=== PATIENT | male | born 1950 | race Caucasian/White ===

== ENCOUNTER 2022-09-11 07:33 | Emergency (ER) | payer MEDICARE, OTHER, SELFPAY ==
--- NOTE | 2022-09-11 | ECG_ITS ---
APPROVED REPORT Exam: Resting ECG HR:78 bpm ECG Measurements Heart Rate 78 AXES [place] 133 P 64 QRSd 101 QRS 57 QT 363 T 0 QTc 396 Conclusion SINUS RHYTHM WITH SINUS ARRHYTHMIA NONSPECIFIC ST & T-WAVE ABNORMALITY BORDERLINE ECG UNCONFIRMED REPORT Electronically signed by : Jeb Melton MD 09/11/2022 17:35:09
[2022-09-11 07:34] VITALS: BP 117/74; PULSE 83; RESP 20; TEMP 36.7; O2SAT 93; BMI 32.3
--- NOTE | 2022-09-11 07:46 | XR_ITS ---
FINAL REPORT TECHNIQUE: Chest PA & Lateral CLINICAL HISTORY: nonspecific cough COMPARISON: none FINDINGS: 2 views of the chest were performed. The heart size is normal. The mediastinum is within normal limits. There are mild chronic changes in the bilateral lungs. There are no pleural effusions. There is no pneumothorax. The bony thorax appears intact. IMPRESSION: No acute cardiopulmonary process. Reviewed, Interpreted and Dictated by Bonifacio Williamson MD Transcribed by Trudy Santana Authenticated and [facility]
[2022-09-11 07:58] LABS: Coronavirus 19, PCR Not Detected (NotDetected); Influenza A, PCR Not Detected (NotDetected); Influenza B, PCR Not Detected (NotDetected)
--- NOTE | 2022-09-11 08:01 | PC.NURSE ---
KEITH CORRALES AT BEDSIDE.
--- NOTE | 2022-09-11 08:04 | HMH.EDGENADL ---
Discharge Plan Disposition Patient Disposition: Home, Self-Care Condition: Good Prescriptions Prescriptions: New prednisone 20 mg tablet 60 mg PO DAILY Qty: 15 0RF Referrals Follow up/Referrals: Skyler Hu MD [Primary Care Provider] - See instructions Activity Restrictions/Add. Instructions Additional Instructions/Restrictions: Please return to the emergency department immediately if you feel worse in any way. Continue taking all medications as prescribed. Follow-up with your primary care doctor in about 3 to 4 days if you do not feel any improvement. Clinical Impressions Clinical Impression: Bronchitis Instructions Patient Instructions: DI for Acute Bronchitis Discharge ED Provider: Paula Cheng Adult HPI General Chief complaint: Upper Respiratory Infection Stated complaint: Congestion,Cough,fever Time Seen by Provider: 09/11/22 08:04 Mode of Arrival: Ambulatory Source of Information: Patient Limitations: No Limitations Description of Symptoms (Recalled from ER Triage Doc. by RN): pt reports productive cough and congestion x1 week, also reports fever, chills, and body aches occasionally, denies chest pain, reports sob occasionally as well History of Present Illness HPI narrative: The patient presents to the emergency department complaining of a 1 week history of productive cough. He is a 1 pack-a-day smoker. He is not on home oxygen. He states that his who is a nurse has the same symptoms. He does complain of some body aches and chills but denies any objective fevers. He states that his oxygen saturations are in the low 90s at baseline. He also has a history of hypertension for which he takes medications. Related Data Previous Rx's Medication Instructions Recorded prednisone 20 mg tablet 60 mg PO DAILY #15 tabs 09/11/22 Allergies Allergy/AdvReac Type Severity Reaction Status Date / Time ciprofloxacin [From Cipro] Allergy Verified 09/11/22 07:45 naproxen [From Aleve] Allergy Verified 09/11/22 07:45 [facility] Disclaimer: The information contained in this section may have been updated after the patient was seen, as this information can be updated by other users. Medical History (Updated 09/11/22 @ 08:17 by Paula Cheng MD) Hypertension Social History Smoking Status: Current every day smoker alcohol intake: former current occupational status: previously employed Travel in the last 8 weeks: None ROS Obtained: Yes All systems reviewed & no additional complaints except as documented Physical Exam General General appearance: alert and in no apparent distress Head Head exam: atraumatic Eye Eye exam: Present normal appearance ENT ENT exam: Present normal exam Neck Neck exam: Present normal inspection and full ROM; Absent tenderness or meningismus Chest Chest inspection: Present normal inspection and symmetric chest wall rise; Absent tenderness Respiratory Respiratory exam: Absent normal lung sounds bilaterally (Mildly decreased breath sounds diffusely bilaterally), respiratory distress or accessory muscle use Cardiovascular Cardiovascular exam: Present regular rate, normal rhythm and normal heart sounds Abdominal Exam Abdominal exam: Present soft and normal bowel sounds; Absent distention, tenderness, heel tap sign, Castellanos's sign, Rovsing's sign, tenderness at McBurney's Point or mass Extremities Exam Extremities exam: Present normal inspection, full ROM and edema (+1 pitting bilaterally) Back Exam Back exam: Present normal inspection; Absent CVA tenderness (R) or CVA tenderness (L) Neurological Exam Neurological exam: Present alert and oriented X3 Psychiatric Psychiatric exam: Present normal affect and normal mood Skin Skin exam: Present warm, dry, intact and normal color Medical Decision Making Aly Inquiry Pt receiving controlled substance: No Vital Signs: 09/11/22 07:34 09/11/22 08:40 Temperature 98.0 F Temperature Sourc
--- NOTE | 2022-09-11 08:06 | PC.NURSE ---
PT TRANSPORTED TO RADIOLOGY VIA WHEELCHAIR.
--- NOTE | 2022-09-11 08:12 | PC.NURSE ---
pt back to room from [facility]
[2022-09-11 08:40] VITALS: BP 129/81; PULSE 86; O2SAT 92
--- NOTE | 2022-09-11 08:40 | PC.NURSE ---
UPDATED PT ON CARE. CALL LIGHT WITHIN REACH. BED IN LOWEST POSITION. NO QUESTIONS OR CONCERNS VOICED AT THIS TIME.
--- NOTE | 2022-09-11 09:00 | PC.NURSE ---
KEITH CORRALES AT BEDSIDE UPDATING PT.
[2022-09-11 09:09] VITALS: BP 115/68; PULSE 102; RESP 18; TEMP 36.8; O2SAT 93
== END 2022-09-11 09:09 | disposition home or self-care (01) ==
PROVIDERS: Emergency Medicine; Emergency Provider Emergency Medicine; PCP Family Medicine
DX: J40 Bronchitis, not specified as acute or chronic (principal); R50.9 Fever, unspecified
CPT/HCPCS: 71046; 93005; 99283; 99284; C9803; U0003; U0005

== ENCOUNTER 2023-03-21 13:26 | Emergency (ER) | payer MEDICARE, OTHER, SELFPAY ==
[2023-03-21 13:34] VITALS: BP 141/86; PULSE 72; RESP 16; TEMP 36.8; O2SAT 94; BMI 32.3
--- NOTE | 2023-03-21 13:53 | HMH.EDGENADL ---
Discharge Plan Disposition Patient Disposition: Home, Self-Care Prescriptions Prescriptions: No Action prednisone 20 mg tablet 60 mg PO DAILY Qty: 15 0RF Referrals Follow up/Referrals: Shun Baker MD [Primary Care Provider] - See instructions Activity Restrictions/Add. Instructions Additional Instructions/Restrictions: Keep Neosporin on your wound once daily for the next week have your sutures removed in 7 to 10 days and return with any spreading redness or pus coming from the wound. Clinical Impressions Clinical Impression: Hand laceration Instructions Patient Instructions: DI for Laceration Repair Discharge ED Provider: Alen Martinez General Adult HPI General Chief complaint: Wound/Laceration Stated complaint: AO 03/21 CUT RIGHT HAND Time Seen by Provider: 03/21/23 13:34 Mode of Arrival: Ambulatory Source of Information: Patient Limitations: No Limitations Description of Symptoms (Recalled from ER Triage Doc. by RN): 72 yo M presents to ED with laceration to palm of right hand. pt was cutting a piece of weather strip on his camper, the knife is his hand slipped and cut his palm. pt states that he is up to date on tetanus shot. History of Present Illness HPI narrative: 72-year-old male here with a laceration to the right hand. States he was working with a knife on his RV and accidentally cut his palmar aspect of the base of his thumb. Its been actively oozing blood he has not had any loss of sensation or movement. He is up-to-date on his tetanus he claims. No injuries elsewhere. States the blade was very clean and needed. Related Data Previous Rx's Medication Instructions Recorded prednisone 20 mg tablet 60 mg PO DAILY #15 tabs 09/11/22 Allergies Allergy/AdvReac Type Severity Reaction Status Date / Time ciprofloxacin [From Cipro] Allergy Verified 03/21/23 13:39 naproxen [From Aleve] Allergy Verified 03/21/23 13:39 [facility] Disclaimer: The information contained in this section may have been updated after the patient was seen, as this information can be updated by other users. Medical History (Updated 03/21/23 @ 13:52 by Alen Martinez MD) Hypertension Social History (Updated 09/11/22 @ 09:05 by Paula Cheng MD) Smoking Status: Current every day smoker alcohol intake: former current occupational status: previously employed Travel in the last 8 weeks: None ROS Obtained: Yes All systems reviewed & no additional complaints except as documented Physical Exam General General appearance: alert Respiratory Respiratory exam: Present normal lung sounds bilaterally Cardiovascular Cardiovascular exam: Present regular rate; Absent tachycardia Expanded Upper Extremity Exam Right: Hand L/R front image: 1. laceration Neurological Exam Neurological exam: Present alert and oriented X3 Medical Decision Making Aly Inquiry Pt receiving controlled substance: No Vital Signs: 03/21/23 13:34 Temperature 98.2 F Temperature Source Oral Pulse Rate [Left Radial] 72 Respiratory Rate 16 Blood Pressure [Right Arm] 141/86 H Blood Pressure Mean [Right Arm] 104 02 Sat by Pulse Oximetry 94 L Medical Decision Narrative: 72-year-old male here with a 4 cm laceration over the palmar aspect of the thenar eminence and the base of the thumb. Wound edges were not reapproximated and were actively bleeding I discussed with him different wound management options but sutures were best. Wound was extensively irrigated after being anesthetized and was close successfully. Return precautions and wound management was discussed. No indication for any prophylactic antibiotics. Patient was up-to-date with tetanus and we did not update this further. Procedures Laceration Laceration 1: Site: thumb and hand Side (If applicable): right Size (cm): 4 Description: linear Depth: simple, single layer Local Anesthetic: lidocaine 1%
[2023-03-21 14:01] VITALS: BP 123/76; PULSE 71; RESP 16; TEMP 36.7
== END 2023-03-21 14:02 | disposition home or self-care (01) ==
PROVIDERS: Emergency Provider Student in an Organized Health Care Education/Training Program; PCP Internal Medicine
DX: S61.411A Laceration without foreign body of right hand, initial encounter (principal); I10 Essential (primary) hypertension; F17.210 Nicotine dependence, cigarettes, uncomplicated; W26.0XXA Contact with knife, initial encounter
CPT/HCPCS: 12002; 99282

== ENCOUNTER 2023-07-02 16:27 | Outpatient (CLI) | payer MEDICARE, OTHER, SELFPAY ==
[2023-07-02 17:04] LABS: Basophils # 0.1 K/mm3 (0-0.2); Basophils % 0.8 % (0.1-2.0); Eosinophils # 0.6 K/mm3 (0.0-0.4); Eosinophils % 6.2 % (0.1-12.0); Hematocrit 47.6 % (42.0-52.0); Hemoglobin 16.1 g/dL (14.1-18.0); Lymphocytes # 2.1 K/mm3 (0.7-4.5); Lymphocytes % 23.9 % (10-50); Mean Corpuscular HGB Conc 33.8 g/dL (31.8-35.4); Mean Corpuscular Hemoglobin 30.9 pg (27.0-31.2); Mean Corpuscular Volume 91.6 fl (80-94); Mean Platelet Volume 8.1 fl (7.4-10.4); Monocytes # 0.7 K/mm3 (0.1-1.0); Monocytes % 7.5 % (1.7-9.3); Neutrophils # 5.5 K/mm3 (1.8-7.8); Neutrophils % 61.6 % (37.0-80.0); Platelet Count 310 K/mm3 (142-424); Red Cell Distribution Width 13.1 % (11.5-17.5); White Blood Count 8.9 K/mm3 (4.8-10.8)
[2023-07-02 17:23] LABS: Chloride 103 mmol/L (98-107); Sodium 139 mmol/L (136-145)
[2023-07-02 17:24] LABS: Potassium 4.3 mmoL/L (3.5-5.1)
[2023-07-02 17:26] LABS: Alanine Aminotransferase 66 U/L (12-78); Albumin Level 3.9 g/dl (3.5-5.0); Albumin/Globulin Ratio 1.4 (1.1-1.8); Alkaline Phosphatase 76 U/L (38-126); Anion Gap 12.3 mEq/L (5-15); Aspartate Amino Transferase 47 U/L (17-59); Bilirubin,Total 0.4 mg/dl (0.2-1.3); Blood Urea Nitrogen 23 mg/dl (9-20); Carbon Dioxide 28 mmol/L (22.0-30.0); Cholesterol 165 mg/dl (140-200); Estimated Glomerular Filt Rate 60 ml/min (>60); GFR (African American) 72 ML/MIN (>60); Globulin 2.7 g/dL (1.3-3.2); Total Protein,Serum 6.6 g/dl (6.3-8.2); Triglycerides 310 mg/dl (30-150); VLDL Cholesterol 62 mg/dL (0-40)
[2023-07-02 17:27] LABS: Calcium 8.8 mg/dl (8.4-10.2); Chol/HDL Ratio 6.1 (1-3.5); Glucose 134 mg/dl (74-100); HDL Cholesterol 27 mg/dl (40-60)
[2023-07-02 17:47] LABS: Direct LDL Cholesterol 105.63 mg/dL (100-129)
[2023-07-02 18:06] LABS: Prostate Specific Ag Screen 0.6 ng/ml (0.0-4.0)
[2023-07-04 16:08] LABS: Hemoglobin A1C 6.5 % (4.0-6.0)
== END 2023-07-02 23:59 ==
LOC: LAB.DROPOF 16:29
PROVIDERS: PCP Internal Medicine; Visit Provider Internal Medicine
DX: I10 Essential (primary) hypertension (principal); I73.9 Peripheral vascular disease, unspecified; E78.5 Hyperlipidemia, unspecified; Z98.890 Other specified postprocedural states; Z12.5 Encounter for screening for malignant neoplasm of prostate; R73.09 Other abnormal glucose
CPT/HCPCS: 80053; 80061; 83036; 85025; G0103

== ENCOUNTER 2024-04-15 14:04 | Outpatient (CLI) | payer MEDICARE, OTHER, SELFPAY ==
[2024-04-15 14:02] LABS: Albumin Level 4.2 g/dl (3.5-5.0); Chloride 104 mmol/L (98-107); Potassium 4.6 mmoL/L (3.5-5.1); Sodium 139 mmol/L (136-145)
[2024-04-15 14:05] LABS: Alanine Aminotransferase 23 U/L (12-78); Albumin/Globulin Ratio 1.7 (1.1-1.8); Alkaline Phosphatase 66 U/L (38-126); Anion Gap 11.6 mEq/L (5-15); Aspartate Amino Transferase 20 U/L (17-59); Bilirubin,Total 0.6 mg/dl (0.2-1.3); Blood Urea Nitrogen 22 mg/dl (9-20); Carbon Dioxide 28 mmol/L (22.0-30.0); Cholesterol 168 mg/dl (140-200); Estimated Glomerular Filt Rate 73 ml/min (>60); GFR (African American) 89 ML/MIN (>60); Globulin 2.5 g/dL (1.3-3.2); Total Protein,Serum 6.7 g/dl (6.3-8.2); Triglycerides 143 mg/dl (30-150); VLDL Cholesterol 29 mg/dL (0-40)
[2024-04-15 14:06] LABS: Calcium 8.9 mg/dl (8.4-10.2); Chol/HDL Ratio 6.2 (1-3.5); Glucose 102 mg/dl (74-100); HDL Cholesterol 27 mg/dl (40-60)
[2024-04-15 14:17] LABS: Direct LDL Cholesterol 118.35 mg/dL (100-129)
[2024-04-15 14:58] LABS: Hemoglobin A1C 5.9 % (4.0-6.0)
== END 2024-04-15 23:59 | disposition home or self-care (01) ==
LOC: LAB.DROPOF 14:04
PROVIDERS: PCP Internal Medicine; Visit Provider Internal Medicine
DX: E78.5 Hyperlipidemia, unspecified (principal); I10 Essential (primary) hypertension; R73.02 Impaired glucose tolerance (oral)
CPT/HCPCS: 80053; 80061; 83036

== ENCOUNTER 2024-10-21 19:51 | Inpatient (IN) | payer MEDICARE, OTHER, SELFPAY ==
--- NOTE | 2024-10-21 20:04 | CT_ITS ---
PROCEDURE INFORMATION: Exam: CT Lumbar Spine Without Contrast Exam date and time: 10/21/2024 8:59 PM Age: 74 years old Clinical indication: Other: Sepsis unknown origin, fall, AMS TECHNIQUE: Imaging protocol: Computed tomography of the lumbar spine without contrast. Radiation optimization: All CT scans at this facility use at least one of these dose optimization techniques: automated exposure control; mA and/or kV adjustment per patient size (includes targeted exams where dose is matched to clinical indication); or iterative reconstruction. COMPARISON: CT THORACIC SPINE WO CON 10/21/2024 8:57 PM FINDINGS: Bones/joints: Moderate loss of intervertebral disc space with degenerative changes involving L5-S1. Mild loss of intervertebral disc space with degenerative changes involving L2 through L5. The vertebral bodies are maintained in height and alignment. No evidence of acute osseous abnormality. Soft tissues: Unremarkable. IMPRESSION: No evidence of acute osseous abnormality.
--- NOTE | 2024-10-21 20:04 | CT_ITS ---
PROCEDURE INFORMATION: Exam: CTA Chest With Contrast Exam date and time: 10/21/2024 9:03 PM Age: 74 years old Clinical indication: Other: Sepsis unknown origin, fall, AMS TECHNIQUE: Imaging protocol: Computed tomographic angiography of the chest with contrast. Exam focused on the arteries. 3D rendering (Not supervised by radiologist): MIP and/or 3D reconstructed images were created by the technologist. Radiation optimization: All CT scans at this facility use at least one of these dose optimization techniques: automated exposure control; mA and/or kV adjustment per patient size (includes targeted exams where dose is matched to clinical indication); or iterative reconstruction. Contrast material: ISO 370; Contrast volume: 70 ml; Contrast route: INTRAVENOUS (IV); COMPARISON: CR XR CHEST 2V 09/11/2022 7:58 AM FINDINGS: Pulmonary arteries: Normal. No pulmonary emboli. Aorta: There is moderate calcific atherosclerotic disease of the thoracic aorta without aneurysmal dilatation. Lungs: Left upper lobe airspace opacities favoring pneumonia in the setting of infection. Left lower lobe 3.0 cm spiculated nodule, axial image 62 of series 5. Pleural spaces: Unremarkable. No pneumothorax. No pleural effusion. Heart: Unremarkable. No cardiomegaly. No pericardial effusion. Coronary arteries: Moderate three-vessel calcific atherosclerotic disease of the coronary arteries. Lymph nodes: Prominent mediastinal and hilar lymph nodes are likely reactive. Liver: There is diffuse hypoattenuation of the liver compatible with moderate hepatic steatosis. Gallbladder and biliary ducts: There are surgical clips within the gallbladder fossa. Bones/joints: Unremarkable. No acute fracture. Soft tissues: Unremarkable. IMPRESSION: 1. Left upper lobe airspace opacities favoring pneumonia in the setting of infection. Recommend continued follow-up imaging to document resolution after treatment. 2. Left lower lobe 3.0 cm spiculated nodule, axial image 62 of series 5. Consider non-emergent PET/CT or tissue sampling.(Reference: Antonietta) REFERENCES: Antonietta Arce, et al. Guidelines for Management of Incidental Pulmonary Nodules Detected on CT Images: From the Fleischner Society 2017. Radiology. 2017;284(1):228-243.
--- NOTE | 2024-10-21 20:04 | CT_ITS ---
PROCEDURE INFORMATION: Exam: CT Head Without Contrast Exam date and time: 10/21/2024 8:53 PM Age: 74 years old Clinical indication: Other: Sepsis unknown origin, fall, AMS TECHNIQUE: Imaging protocol: Computed tomography of the head without contrast. Radiation optimization: All CT scans at this facility use at least one of these dose optimization techniques: automated exposure control; mA and/or kV adjustment per patient size (includes targeted exams where dose is matched to clinical indication); or iterative reconstruction. COMPARISON: No relevant prior studies available. FINDINGS: Brain: Mild-moderate generalized cerebral/cerebellar atrophy. Mild bilateral white matter hypodensities which are nonspecific but most commonly associated with chronic microvascular ischemia in this age group. The IACs are grossly normal. No extra-axial fluid collections. No evidence of acute intracranial hemorrhage. Cerebral/cerebellar cramer-white matter differentiation is well maintained. No intracranial mass lesions. No midline shift or herniation. Cerebral ventricles: Moderate compensatory ventriculomegaly secondary to central atrophy. Pituitary gland and sella: The sella is grossly normal. Paranasal sinuses: Opacified right frontal sinus and mild mucosal thickening in the right ethmoid air cells and left sphenoid sinus consistent with changes of chronic sinusitis. No fluid levels. Mastoid air cells: Visualized mastoid air cells are clear. Orbital cavities: Prior bilateral ocular cataract surgery. Bones: No acute osseous findings. Moderate right and mild-moderate left TMJ osteoarthritic changes. Soft tissues: No acute soft tissue findings. Vasculature: Mild-moderate calcific atherosclerosis. No asymmetric vascular hyperdensities suggestive of thrombosis are identified. IMPRESSION: 1. No acute intracranial process. No intracranial hemorrhage or mass effect. 2. Chronic sinusitis.
--- NOTE | 2024-10-21 20:04 | CT_ITS ---
PROCEDURE INFORMATION: Exam: CT Thoracic Spine Without Contrast Exam date and time: 10/21/2024 8:57 PM Age: 74 years old Clinical indication: Other: Sepsis unknown origin, fall, AMS TECHNIQUE: Imaging protocol: Computed tomography of the thoracic spine without contrast. Radiation optimization: All CT scans at this facility use at least one of these dose optimization techniques: automated exposure control; mA and/or kV adjustment per patient size (includes targeted exams where dose is matched to clinical indication); or iterative reconstruction. COMPARISON: CT THORACIC SPINE WO CON 10/21/2024 8:57 PM FINDINGS: Bones/joints: Click bladder disc C6-C7. Coarsening of the trabecular of T12 suggesting intraosseous hemangioma. The vertebral bodies are maintained in height and alignment. No evidence of acute osseous abnormality. Soft tissues: Unremarkable. IMPRESSION: No evidence of acute osseous abnormality.
--- NOTE | 2024-10-21 20:04 | CT_ITS ---
PROCEDURE INFORMATION: Exam: CT Cervical Spine Without Contrast Exam date and time: 10/21/2024 8:55 PM Age: 74 years old Clinical indication: Other: Sepsis unknown origin, fall, AMS TECHNIQUE: Imaging protocol: Computed tomography of the cervical spine without contrast. Radiation optimization: All CT scans at this facility use at least one of these dose optimization techniques: automated exposure control; mA and/or kV adjustment per patient size (includes targeted exams where dose is matched to clinical indication); or iterative reconstruction. COMPARISON: CT HEAD/BRAIN WO CON 10/21/2024 8:53 PM FINDINGS: Bones: Craniocervical alignment is normal. The occipital condyles are intact. The odontoid is intact. Moderate osteoarthritic sclerosis and spurring at the atlantodens interval. No jumped or perched facets. Moderate multilevel bilateral osteoarthritic facet hypertrophy. No fractures. 6 mm chronic appearing ossification at the tip of the C7 spinous process consistent with chronic degenerative or posttraumatic calcification. Slight 1-2 mm osteoarthritic anterolisthesis C4-C5 and C5-C6. Mild-moderate osteoarthritic disc space narrowing and marginal spurring C3-C4 and C6-C7. No significant canal stenosis. There is right foraminal stenosis which is mild at C2-C3, moderate-severe at C3-C4, mild-moderate at C4-C5. There is left foraminal stenosis which is mild at C3-C4, moderate at C4-C5, mild-moderate at C5-C6 and C6-C7. Lungs: Visualized pulmonary apices are clear. Thyroid: The visualized thyroid gland is unremarkable. Soft tissues: No acute soft tissue abnormalities. IMPRESSION: 1. No evidence of acute fracture or traumatic subluxation. No CT evidence of spinal infection. 2. Osteoarthritic changes with bilateral foraminal stenoses detailed above.
--- NOTE | 2024-10-21 20:04 | CT_ITS ---
PROCEDURE INFORMATION: Exam: CT Abdomen And Pelvis With Contrast Exam date and time: 10/21/2024 9:03 PM Age: 74 years old Clinical indication: Other: Sepsis unknown origin, fall, AMS TECHNIQUE: Imaging protocol: Computed tomography of the abdomen and pelvis with contrast. 3D rendering (Not supervised by radiologist): MIP and/or 3D reconstructed images were created by the technologist. Radiation optimization: All CT scans at this facility use at least one of these dose optimization techniques: automated exposure control; mA and/or kV adjustment per patient size (includes targeted exams where dose is matched to clinical indication); or iterative reconstruction. Contrast material: ISOVUE; Contrast volume: 70 ml; Contrast route: IV; COMPARISON: CT LUMBAR SPINE WO CON 10/21/2024 8:59 PM FINDINGS: Liver: There is diffuse hypoattenuation of the liver compatible with moderate hepatic steatosis. Gallbladder and biliary ducts: There are surgical clips within the gallbladder fossa. Pancreas: Normal. No ductal dilation. Spleen: Normal. No splenomegaly. Adrenal glands: Normal. No mass. Kidneys and ureters: Normal. No hydronephrosis. Stomach and bowel: Unremarkable. No obstruction. No mucosal thickening. Appendix: The appendix is not definitely identified, but there are no primary or secondary CT findings to suggest a diagnosis of acute appendicitis. Intraperitoneal space: Unremarkable. No free air. No significant fluid collection. Vasculature: Moderate mixed calcific and noncalcified atherosclerotic disease of the abdominal aorta with endovascular repair of an aortic aneurysm with left stent having moderate to severe stenosis distally. Lymph nodes: Unremarkable. No enlarged lymph nodes. Urinary bladder: Unremarkable as visualized. Reproductive: Unremarkable as visualized. Bones/joints: Exostosis at the left anterior superior iliac spine. Moderate loss of intervertebral disc space with degenerative changes involving L4 through S1. Soft tissues: Normal. IMPRESSION: Moderate mixed calcific and noncalcified atherosclerotic disease of the abdominal aorta with endovascular repair of an aortic aneurysm with left stent having moderate to severe stenosis distally. Consider nonurgent vascular surgery consultation.
[2024-10-21 20:14] LABS: Basophils # 0.1 K/mm3 (0-0.2); Basophils % 0.5 % (0.1-2.0); Hematocrit 42.8 % (42.0-52.0); Hemoglobin 14.7 g/dL (14.1-18.0); Immature Granulocytes # 0.07 10^3uL; Immature Granulocytes % 0.5 %; Lymphocytes # 1.4 K/mm3 (0.7-4.5); Lymphocytes % 10.2 % (10-50); Mean Corpuscular HGB Conc 34.3 g/dL (31.8-35.4); Mean Corpuscular Volume 87.3 fl (80-94); Mean Platelet Volume 9.6 fl (7.4-10.4); Monocytes # 1.4 K/mm3 (0.1-1.0); Monocytes % 10.5 % (1.7-9.3); Neutrophils # 10.4 K/mm3 (1.8-7.8); Neutrophils % 78.3 % (37.0-80.0); Nucleated Red Blood Cells # 0 10^3/uL; Nucleated Red Blood Cells % 0 %; Platelet Count 277 K/mm3 (142-424); Red Cell Distribution Width 12.6 % (11.5-17.5); Red Cell Distribution Width-SD 40.1 fL; White Blood Count 13.3 K/mm3 (4.8-10.8)
[2024-10-21] MEDS: LACTATED RINGERS 1000ML 1,000 ML 999 ML IV (20:20)
[2024-10-21] MEDS: ACETAMINOPHEN 1,000MG/100ML VIAL 1000 MG IV (20:20)
[2024-10-21 20:21] VITALS: BP 145/74; PULSE 91; RESP 20; TEMP 39.4; O2SAT 94; BMI 34.7
[2024-10-21 20:22] LABS: VBG Base Excess 0.2 mmol/L (-2.4-2.3); VBG HCO3 24.5 mmol/L (23-30); VBG Oxygen Saturation 81.4 % (50-70); VBG PCO2 37.6 mmol/L (35-51); VBG PH 7.43 mmol/L (7.31-7.41); VBG PO2 45.1 mmol/L (28-40); VBG Total CO2 25.6 mmol/L (23-27)
[2024-10-21 20:26] LABS: Lactate Venous 3.8 mmol/L (0.4-2.0)
[2024-10-21 20:36] LABS: Coronavirus 19, PCR Not Detected (NotDetected); Influenza A, PCR Not Detected (NotDetected); Influenza B, PCR Not Detected (NotDetected)
[2024-10-21 20:38] LABS: Albumin Level 4.4 g/dl (3.5-5.0); Chloride 92 mmol/L (98-107); Potassium 3.2 mmoL/L (3.5-5.1); Sodium 129 mmol/L (136-145)
[2024-10-21 20:41] LABS: Alanine Aminotransferase 25 U/L (12-78); Albumin/Globulin Ratio 1.4 (1.1-1.8); Alkaline Phosphatase 76 U/L (38-126); Anion Gap 13.2 mEq/L (5-15); Aspartate Amino Transferase 25 U/L (17-59); Blood Urea Nitrogen 23 mg/dl (9-20); Calcium 8.6 mg/dl (8.4-10.2); Carbon Dioxide 27 mmol/L (22.0-30.0); Creatinine Clearance Estimated 69 mL/min (50-200); Estimated Glomerular Filt Rate 54 ml/min (>60); GFR (African American) 65 ML/MIN (>60); Globulin 3.2 g/dL (1.3-3.2); Glucose 143 mg/dl (74-100); Total Protein,Serum 7.6 g/dl (6.3-8.2)
[2024-10-21 20:47] LABS: C-Reactive Protein 159.9 mg/L (0-4)
[2024-10-21 20:51] LABS: NT Pro Brain Natriuretic Pep. 533 pg/mL (0-125)
[2024-10-21 20:54] LABS: Troponin I 0.02 ng/ml (0.00-0.034)
[2024-10-21] MEDS: SODIUM CHLORIDE 0.9% 10ML SYR (RAD ONLY) 10 ML IV (20:54)
[2024-10-21] MEDS: IOPAMIDOL-370 (76%);100ML BOTTLE 70 ML IV (20:54)
[2024-10-21] MEDS: 0.9 % SODIUM CHLORIDE 50 ML VIAL IV (20:54)
[2024-10-21 20:59] LABS: T4 (Thyroxine) 7.3 ug/dl (5.53-11.0)
[2024-10-21 21:12] LABS: Thyroid Stimulating Hormone 1.53 uIU/mL (0.465-4.68)
[2024-10-21 21:38] LABS: Procalcitonin 0.241 ng/mL (0.0-2.0)
[2024-10-21] MEDS: PIPERACILLIN/TAZO 3.375 GM in 0.9 % SODIUM CHLORIDE 50 ML IV (22:23)
--- NOTE | 2024-10-21 22:25 | HMH.EDGENADL ---
Discharge Plan Disposition Patient Disposition: Admitted Condition: Good Clinical Impressions Clinical Impression: Sepsis, Pneumonia, Fall, Lung mass Discharge ED Provider: Lily Urena General Adult HPI General Chief complaint: Fall Stated complaint: fall Time Seen by Provider: 10/21/24 19:59 Mode of Arrival: EMS Source of Information: Patient Description of Symptoms (Recalled from ER Triage Doc. by RN): pt to ED with c/o dizziness, fall, and hitting head. No LOC. No blood thinners. History of Present Illness HPI narrative: This patient is a 74-year-old male with a history of COPD, tobacco use disorder, hypertension, hyperlipidemia presents the emergency department for evaluation of concern for fall. Patient notes that has been sick for a couple of days with fevers, cough, shortness of breath and has not been feeling well overall. He states that today, he felt very lightheaded and fell, hitting his head. He does not think he lost consciousness. He denies any pain as a result of the fall. No other concerns noted at this time. He denies use of blood thinners but does take aspirin Related Data Home Medications ?Medication ?Instructions ?Recorded ?Confirmed aspirin 81 mg tablet,delayed 81 mg PO DAILY 04/15/24 10/21/24 release amlodipine 5 mg tablet 5 mg PO DAILY 10/21/24 10/21/24 sertraline 50 mg tablet 50 mg PO DAILY 10/21/24 10/21/24 triamterene 37.5 37.5 tab PO DAILY 10/21/24 10/21/24 mg-hydrochlorothiazide 25 mg tablet Allergies Allergy/AdvReac Type Severity Reaction Status Date / Time ciprofloxacin (From Cipro) Allergy Verified 04/15/24 08:19 naproxen (From Aleve) Allergy Verified 04/15/24 08:19 [facility] Disclaimer: The information contained in this section may have been updated after the patient was seen, as this information can be updated by other users. Medical History Cataracts, bilateral Spermatocele Neoplasm of right patella Gangrene of gallbladder Abdominal aortic aneurysm Hypertension Surgical History Hx of tonsillectomy S/P AAA (abdominal aortic aneurysm) repair Hx of cholecystectomy Family History (Updated 10/21/24 @ 23:57 by Brittany Bajwa RN) Father Stroke Mother UTI (urinary tract infection) Social History (Updated 10/21/24 @ 23:59 by Brittany Bajwa RN) Smoking Status: Current every day smoker alcohol intake: former current occupational status: previously employed Travel in the last 8 weeks?: None Have you lived/traveled outside US in past 30 days?: No Contact w/someone who lives/traveled outside US past 30 days?: No Exposure to someone with infectious disease in past 14 days?: No Do you have a fever (greater than 100.4 F or 38 C)?: No Have you tested positive for COVID-19?: No Exposed to someone with COVID-19 in past 14 days?: No Do you have a sore throat?: No Do you have a cough?: No Do you have any weakness?: No Do you have any diarrhea?: No Are you experiencing any unusual bleeding?: No Do you have any muscle aches/pain?: No Do you have any abdominal pain?: No Are you experiencing loss of taste or smell?: No Other Medical History Have you received the Pneumonia Vaccine: No ROS Obtained: Yes All systems reviewed & no additional complaints except as documented Physical Exam General General appearance: alert and obese Comment: Ill-appearing Head Head exam: normocephalic and other (Some bruising to the forehead) Eye Eye exam: Present normal appearance, PERRL and EOMI ENT ENT exam: Present normal exam, normal oropharynx, mucous membranes moist and normal external ear exam Neck Neck exam: Present normal inspection, trachea midline and other (C-collar in place); Absent tenderness Chest Chest inspection: Present normal inspection and symmetric chest wall rise; Absent tenderness Respiratory Respiratory exam: Present normal lung sounds bilaterally; Absent respiratory distress, wheezes, stridor or accessory muscle use Cardiovascular Cardiovascular exam: Present normal rhythm and tachycardia Abdominal Exam Abdominal exam: Present soft; Absent distention, tenderness or guarding Extremities Exam Extremities exam: Present normal inspection, full ROM and normal capillary refill; Absent tenderness or edema Back Exam Back exam: Present normal inspection and full ROM; Absent tenderness Neurological Exam Neurological exam: Present alert, oriented X3, CN II-XII intact and normal gait; Absent motor sensory deficit Psychiatric Psychiatric exam: Present normal affect and normal mood Skin Skin exam: Present warm, diaphoresis and other (Very warm, diaphoretic) Medical Decision Making Medical Records Medical records reviewed: Yes I reviewed the patient's medical records. Screening: Per USPSTF and CDC recommendations, given the prevalence of disease in our region, it is our hospital?s policy to screen for HIV and viral Hepatitis for all patients aged 18 and over and those with ongoing risk factors. Aly Inquiry Pt receiving controlled substance: No Vital Signs: 10/21/24 20:21 10/21/24 22:36 10/21/24 22:44 Temperature 103.0 F H 98.4 F Temperature Source Oral Oral Pulse Rate 68 Pulse Rate [Left Radial] 91 H 68 Respiratory Rate 20 19 20 Blood Pressure 123/70 Blood Pressure [Right Arm] 145/74 H Blood Pressure Mean [Right Arm] 97 Blood Pressure Source Automatic Cuff Blood Pressure Source [Right Arm] Automatic Cuff Blood Pressure Position Supine Blood Pressure Position [Right Arm] Sitting 02 Sat by Pulse Oximetry 94 L 92 L Oxygen Delivery Method Room Air Nasal Cannula Nasal Cannula Oxygen Flow Rate (LPM) 1 2 Lab Data Lab results reviewed: Yes I reviewed the patient's lab results. Lab Results 10/21/24 20:00: WBC 13.3 H, RBC 4.90, Hgb 14.7, Hct 42.8, MCV 87.3, MCH 30.0, MCHC 34.3, RDW 12.6, Plt Count 277, MPV 9.6, Neut % (Auto) 78.3, Lymph % (Auto) 10.2, [facility] % (Auto) 10.5 H, Eos % (Auto) 0.0 L, Baso % (Auto) 0.5, Neut # (Auto) 10.4 H, Lymph # (Auto) 1.4, [facility] # (Auto) 1.4 H, Eos # (Auto) 0.0, Baso # (Auto) 0.1, Sodium 129 L, Potassium 3.2 L, Chloride 92 L, Carbon Dioxide 27, Anion Gap 13.2, BUN 23 H, Creatinine 1.30 H, Estimated Creat Clear 69, Estimated GFR 54 L, Est GFR ( Amer) 65, Glucose 143 H, Calcium 8.6, Total Bilirubin 1.0, AST 25, ALT 25, Alkaline Phosphatase 76, Troponin I 0.02, C-Reactive Protein 159.9 H, NT-Pro-B Natriuret Pep 533 H, Total Protein 7.6, Albumin 4.4, Globulin 3.2, Albumin/Globulin Ratio 1.4, Procalcitonin 0.241, TSH 1.53, Thyroxine (T4) 7.3 10/21/24 20:04: VBG pH 7.43 H, VBG pCO2 37.6, VBG pO2 45.1 H, VBG HCO3 24.5, VBG Total CO2 25.6, VBG O2 Saturation 81.4 H, VBG Base Excess 0.2, VBG Lactic Acid 3.8 H 10/21/24 20:22: SARS-CoV-2 (PCR) Not detected, Influenza A Untype (PCR) Not detected, Influenza Type B (PCR) Not detected 10/21/24 20:00 10/21/24 20:00 Orders (Tests/Meds): ED MEDICATIONS Generic Name Dose Route Start Last Admin Trade Name Freq PRN Reason Stop Dose Admin Acetaminophen 650 mg 10/21/24 23:51 Acetaminophen 325mg Tab PO 11/20/24 23:50 Q4HP PRN Fever or Mild Pain (1-3) Piperacillin Sod/Tazobactam 50 mls @ 100 mls/hr 10/22/24 08:00 Sod 3.375 gm/ Sodium Chloride IV 11/01/24 07:59 Q8H MENDEZ Sodium Chloride 1,000 mls @ 50 mls/hr 10/21/24 23:45 10/22/24 00:05 Sod Chlor 0.9% 1000ml Bag IV 11/20/24 23:44 50 mls/hr .Q20H MENDEZ Administration Miscellaneous 1 each 10/21/24 22:15 10/21/24 22:33 Vancomycin Consult Request NOTAPPLIC 11/20/24 22:14 1 each CONSULT PHARMACY MENDEZ Administration Miscellaneous 1 each 10/21/24 23:45 10/22/24 00:05 Vancomycin Consult Request NOTAPPLIC 11/20/24 23:44 1 each CONSULT PHARMACY MENDEZ Administration Ondansetron HCl 4 mg 10/21/24 23:51 Ondansetron 4mg/2ml Vial IV 11/20/24 23:50 Q8HP PRN Nausea Sodium Chloride 3 ml 10/21/24 23:49 10/22/24 00:53 Sodium Chloride 3% 15ml Neb IH 11/20/24 23:48 3 ml ONCE PRN Administration INDUCE SPUTUM COLLECTION Sodium Chloride 10 ml 10/21/24 23:51 Sodium Chloride 0.9% 10ml Flush Syringe IV 11/20/24 23:50 NEEDED PRN Maintain IV Site Discontinued Medications Generic Name Dose Route Start Last Admin Trade Name Freq PRN Reason Stop Dose Admin Acetaminophen 1,000 mg 10/21/24 20:06 10/21/24 20:20 Acetaminophen 1,000mg/100ml Vial IV 10/21/24 20:07 1,000 mg ONCE ONE Administration Lactated Ringer's 1,000 mls @ 999 mls/hr 10/21/24 20:06 10/21/24 20:20 Lactated Ringer's 1000 Ml Bag IV 10/21/24 21:06 999 mls/hr .Q1H1M ONE Administration Lactated Ringer's 1,910 mls @ 955 mls/hr 10/21/24 20:39 10/21/24 22:02 Lactated Ringer's 1000 Ml Bag 30 ml/kg infuse over 2 hr (1910 ml) 10/21/24 22:38 Not Given IV .Q2H ONE Piperacillin Sod/Tazobactam 50 mls @ 100 mls/hr 10/21/24 22:14 10/21/24 22:23 Sod 3.375 gm/ Sodium Chloride IV 10/21/24 22:43 100 mls/hr ONCE ONE Administration Vancomycin/PEG/NADA/Lysine/Water 1.75 gm in 350 mls @ 175 mls/hr 10/21/24 22:30 10/21/24 23:30 Vancomycin 1.75gm/350ml (Peg) Premix IV 10/22/24 00:29 175 mls/hr ONCE ONE Administration Iopamidol 70 ml 10/21/24 20:53 10/21/24 20:54 Iopamidol-370 (76%);100ml Bottle IV 10/21/24 20:54 70 ml ONCE ONE Administration Sodium Chloride 50 ml 10/21/24 20:53 10/21/24 20:54 0.9 % Sodium Chloride 50 Ml Vial IV 10/21/24 20:54 50 ml ONCE ONE Administration Sodium Chloride 10 ml 10/21/24 20:53 10/21/24 20:54 Sodium Chloride 0.9% 10ml Syr (Rad Only) IV 10/21/24 20:54 10 ml ONCE ONE Administration ORDERS Category Date Time Status CT abdomen pelvis w con Stat Cat Scan 10/21/24 20:[address] angio chest PE protocol Stat Cat Scan 10/21/24 20:[address] cervical spine wo con Stat Cat Scan 10/21/24 20:[address] head/brain wo con Stat Cat Scan 10/21/24 20:[address] lumbar spine wo con Stat Cat Scan 10/21/24 20:[address] thoracic spine wo con Stat Cat Scan 10/21/24 20:04 Completed BNP [NT Pro Brain Natriuretic Pep.] Stat Lab 10/21/24 20:00 Completed CRP [C-Reactive Protein] Stat Lab 10/21/24 20:00 Completed Complete Blood Count Auto Diff Stat Lab 10/21/24 20:00 Completed Comprehensive Metabolic Panel Stat Lab 10/21/24 20:00 Completed Procalcitonin Stat Lab 10/21/24 20:00 Completed Rapid PCR Covid and Flu A/B Stat Lab 10/21/24 20:22 Completed T4 (Thyroxine) Stat Lab 10/21/24 20:00 Completed TSH [Thyroid Stimulating Hormone] Stat Lab 10/21/24 20:00 Completed Trop I [Troponin I] Stat Lab 10/21/24 20:00 Completed Troponin I Q3H Lab 10/21/24 23:33 Completed Troponin I Q3H Lab 10/22/24 02:15 Ordered UA [Urinalysis and Microscopic] Stat Lab 10/22/24 00:19 Completed Blood Culture Stat Micro 10/21/24 19:45 Received VBG [Venous Blood Gas] Stat RT 10/21/24 20:04 Completed Medical Decision Narrative: In summary, this patient is a 74-year-old male presenting to the Emergency Department for evaluation of fall. He also notes several days of general illness with shortness of breath and generally feeling unwell. Differential diagnoses considered include but are not limited to pneumonia, sepsis, UTI, head trauma, C-spine fracture, polytrauma. Ruling out the most morbid conditions drove assessment. It should be noted patient's history includes COPD, hypertension, hyperlipidemia, tobacco dependence which may or may not be at goal therapy. This complicates all aspects of care by increasing patient's risk for morbidity. I reviewed patient's past medical records and noted prior PCP evaluations for maintenance of health in the setting of COPD. On exam, the patient is ill-appearing, febrile, tachycardic, tachypneic. He is very diaphoretic. He is requiring 2 L nasal cannula. Broad lab evaluation to evaluate for infectious, metabolic, cardiac derangements in the setting of general illness and shortness of breath he has head hematoma but otherwise no focal traumatic injuries noted on exam, he is neurologically intact. Workup included as well as CT head, CT C/T/L-spine, CTA PE protocol, CT abdomen pelvis with IV contrast. I independently interpreted CT scan prior to the radiologist read and noted pneumonia, no obvious traumatic injury such as intracranial hemorrhage or fracture. Please see their read for final interpretation. Radiology noted concern for possible lung mass, which patient was notified of. Labs were obtained that demonstrated leukocytosis and mildly elevated lactic acid in the setting of fever, tachycardia, tachypnea consistent with sepsis. He was given sepsis bolus of IV fluids based on ideal body weight with improved perfusion on skin reassessment afterward. He also has elevated inflammatory markers. BNP is very mildly elevated, mild AUGUSTINA, mild hyponatremia, mild hypokalemia.. On reassessment, patient had good improvement after administration of interventions above. He is given IV acetaminophen in addition to the sepsis bolus for fever control, and he was given IV vancomycin and Zosyn for broad-spectrum antibiotics. Ultimately given sepsis in the setting of pneumonia, fall without traumatic injury, electrolyte derangements, AUGUSTINA I feel he would benefit from admission for continued monitoring and resuscitation. I had an indirect discussion with the hospitalist who admitted the patient in stable condition. Critical Care Critical Care Time Critical Care Time: Yes Attestation: On 10/21/24, the high probability of a clinically significant, sudden or life threatening deterioration of the following system(s) required my full and direct attention, intervention and personal management. The time I documented below is in addition to time spent performing reported procedures but includes the following listed in this critical care notation. Total Time Total Critical Care Time: 45
[2024-10-21] MEDS: VANCOMYCIN CONSULT REQUEST 1 EACH NOTAPPLIC (22:33)
[2024-10-21 22:36] VITALS: PULSE 68; RESP 19; O2SAT 92
[2024-10-21 22:44] VITALS: BP 123/70; PULSE 68; RESP 20; TEMP 36.9; O2SAT 94
--- NOTE | 2024-10-21 22:44 | PC.NURSE ---
report called to Brittany NELSON
--- NOTE | 2024-10-21 23:16 | PC.NURSE ---
Patient arrived tof eliud via wheelchair from ED at 23:05.
[2024-10-21] MEDS: VANCOMYCIN/WATER FOR INJ (PEG) 1.75 GM/350 ML PIGGYBACK IV (23:30)
--- NOTE | 2024-10-21 23:35 | P.HP_ITS ---
<Statement entered by Mukund Patrick MD - 10/22/24 09:39> Rounded on patient after nurse practitioner. Personally examined and interviewed patient. Agree with exam findings and care plan as documented. History of Present Illness *Admission Date: 10/21/24 *Reason for visit:: Fall *History of present illness: This is a 74-year-old male with a past medical history of COPD, tobacco use, hypertension, hyperlipidemia who presents emergency department today with conc kinjal for fall. is at the bedside and provides collateral and states that he has had several days of feeling generally unwell. She reports chronic cough with tobacco use but states this cough may have been a little bit different. 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 Oxygen saturations have been okay. Patient himself reports feeling very lightheaded and off-balance today. He reports going to the bathroom and falling forward into the bathtub and hitting his head against the wall. He endorses general malaise and fatigue. Cough and runny nose. Emergency department workup notable for sepsis on arrival with fever of 103, leukocytosis with a white blood cell count of 13. Lactic acid of 3.8, sodium of 129, potassium of 3.2, CRP of 159. Chest imaging notable for left upper lobe airspace opacity favoring pneumonia. Left lower lobe 3 cm spiculated nodule with recommendations for follow-up PET or CT tissue sampling. Given his sepsis, he was covered with vancomycin and Zosyn after blood cultures obtained. He is admitted to hospital service at this time [facility] Disclaimer: The information contained in this section may have been updated after the patient was seen, as this information can be updated by other users. Medical History Cataracts, bilateral Spermatocele Neoplasm of right patella Gangrene of gallbladder Abdominal aortic aneurysm Hypertension Surgical History Hx of tonsillectomy S/P AAA (abdominal aortic aneurysm) repair Hx of cholecystectomy Family History (Updated 10/21/24 @ 23:57 by Brittany Bajwa RN) Father Stroke Mother UTI (urinary tract infection) Social History (Updated 10/21/24 @ 23:59 by Brittany Bajwa RN) Smoking Status: Current every day smoker alcohol intake: former current occupational status: previously employed Travel in the last 8 weeks?: None Have you lived/traveled outside US in past 30 days?: No Contact w/someone who lives/traveled outside US past 30 days?: No Exposure to someone with infectious disease in past 14 days?: No Do you have a fever (greater than 100.4 F or 38 C)?: No Have you tested positive for COVID-19?: No Exposed to someone with COVID-19 in past 14 days?: No Do you have a sore throat?: No Do you have a cough?: No Do you have any weakness?: No Do you have any diarrhea?: No Are you experiencing any unusual bleeding?: No Do you have any muscle aches/pain?: No Do you have any abdominal pain?: No Are you experiencing loss of taste or smell?: No Other Medical History Have you received the Flu Vaccine for this season: No Have you received the Pneumonia Vaccine: No Review of Systems Review of Systems Review of systems:: pertinent systems reviewed and negative unless documented below Review of systems (narrative): Negative except for HPI Meds Home Medications and Allergies Home Medications ?Medication ?Instructions ?Recorded ?Confirmed ?Type aspirin 81 mg tablet,delayed 81 mg PO DAILY 04/15/24 10/21/24 History release amlodipine 5 mg tablet 5 mg PO DAILY 10/21/24 10/21/24 History sertraline 50 mg tablet 50 mg PO DAILY 10/21/24 10/21/24 History triamterene 37.5 37.5 tab PO DAILY 10/21/24 10/21/24 History mg-hydrochlorothiazide 25 mg tablet New Prescriptions to Start Prescriptions: Allergies Allergy/AdvReac Type Severity Reaction Status Date / Time ciprofloxacin (From Cipro) Allergy Verified 04/15/24 08:19 naproxen (From Aleve) Allergy Verified 04/15/24 08:19 Exam Data for Last 24 hours Vital signs and Labs for Last 24 Hours: Temp Pulse Resp BP Pulse Ox O2 Del Method O2 Flow Rate 98.6 F 59 L 18 117/68 91 L Room Air 1.5 10/22/24 00:00 10/22/24 00:53 10/22/24 00:53 10/22/24 00:00 10/22/24 00:53 10/22/24 03:00 10/22/24 00:53 Laboratory Results - last 24 hr 10/21/24 20:00: WBC 13.3 H, RBC 4.90, Hgb 14.7, Hct 42.8, MCV 87.3, MCH 30.0, MCHC 34.3, RDW 12.6, Plt Count 277, MPV 9.6, Neut % (Auto) 78.3, Lymph % (Auto) 10.2, [place] % (Auto) 10.5 H, Eos % (Auto) 0.0 L, Baso % (Auto) 0.5, Neut # (Auto) 10.4 H, Lymph # (Auto) 1.4, [place] # (Auto) 1.4 H, Eos # (Auto) 0.0, Baso # (Auto) 0.1, Sodium 129 L, Potassium 3.2 L, Chloride 92 L, Carbon Dioxide 27, Anion Gap 13.2, BUN 23 H, Creatinine 1.30 H, Estimated Creat Clear 69, Estimated GFR 54 L, Est GFR ( Amer) 65, Glucose 143 H, Calcium 8.6, Total Bilirubin 1.0, AST 25, ALT 25, Alkaline Phosphatase 76, Troponin I 0.02, C-Reactive Protein 159.9 H , NT-Pro-B Natriuret Pep 533 H, Total Protein 7.6, Albumin 4.4, Globulin 3.2, Albumin/Globulin Ratio 1.4, Procalcitonin 0.241, TSH 1.53, Thyroxine (T4) 7.3 10/21/24 20:04: VBG pH 7.43 H, VBG pCO2 37.6, VBG pO2 45.1 H, VBG HCO3 24.5, VBG Total CO2 25.6, VBG O2 Saturation 81.4 H, VBG Base Excess 0.2, VBG Lactic Acid 3.8 H 10/21/24 20:22: SARS-CoV-2 (PCR) Not detected, Influenza A Untype (PCR) Not detected, Influenza Type B (PCR) Not detected 10/21/24 23:33: Troponin I 0.03 10/22/24 00:00: Chlamy pneumoniae PCR Not detected, Adenovirus (PCR) Not detected, B. pertussis DNA (PCR) Not detected, Coronavirus OC43 (PCR) Not detected, Coronavirus HKU1 (PCR) Not detected, Coronavirus 229E (PCR) Not detected, SARS-CoV-2 (PCR) Not detected, Coronavirus NL63 (PCR) Not detected, Human Metapneumovir PCR Not detected, Influenza A (H1) PCR Not detected, Influ A (H1N1/09) PCR Not detected, Influenza A (H3) PCR Not detected, Influenza Type A (PCR) Not detected, Influenza Type B (PCR) Not detected, M. pneumoniae (PCR) Not detected, Parainfluenza 1 (PCR) Not detected, Parainfluenza 2 (PCR) Not detected, Parainfluenza 3 (PCR) Not detected, Parainfluenza 4 (PCR) Not detected, RSV (PCR) Not detected, Entero/Rhino (PCR) Not detected 10/22/24 00:19: Urine Color Yellow, Urine Appearance Clear, Urine pH 6.0, Ur Specific [place] <= 1.005, Urine Protein Negative, Urine Glucose (UA) Negative, Urine Ketones Negative, Urine Blood 1+ A, Urine Nitrate Negative, Urine Bilirubin Negative, Urine Urobilinogen 0.2, Ur Leukocyte Esterase Negative, Urine RBC Occasional 10/22/24 01:17: Lactate 0.9, Troponin I 0.02 I & O for Last 24 hours: Intake & Output 10/19/24 10/20/24 10/21/24 10/22/24 23:59 23:59 23:59 23:59 Intake Total 1400 / 1400 Output Total 1100 / 1100 Balance 300 / 300 Weight 97.522 kg Constitutional Constitutional: no acute distress *Routine HEENT Exam Head: Present normocephalic Eye: Present EOMI and PERRL ENT: Present mucous membranes moist *Routine Neck Exam Neck: Present supple; Absent lymphadenopathy *Routine Respiratory Exam Respiratory: Present crackles (Left upper lobe) and normal respiratory effort Comments: Coarse cough noted *Routine Cardiovascular Exam Cardiovascular: Present RRR *Routine Abdominal Exam Abdominal: Present soft and normoactive bowel sounds; Absent tenderness *Routine Rectal Exam Rectal:: deferred *Routine Genitalia Exam Genitalia:: deferred *Routine Extremities Exam Extremities: Absent cyanosis, clubbing or edema *Routine Skin Exam Skin: Present warm; Absent rash *Routine Neurological Exam Neurological: Present alert and oriented X3 Assessment and Plan *Assessment and plan (1) Sepsis: Status: Acute Category: Medical Code(s): A41.9 - Sepsis, unspecified organism (2) Pneumonia: Status: Acute Category: Medical Code(s): J18.9 - Pneumonia, unspecified organism (3) Fall: Status: Acute Category: Medical Code(s): W19.XXXA - Unspecified fall, initial encounter (4) Lung mass: Status: Acute Category: Medical Code(s): R91.8 - Other nonspecific abnormal finding of lung field (5) COPD (chronic obstructive pulmonary disease): Status: Chronic Category: Medical Code(s): J44.9 - Chronic obstructive pulmonary disease, unspecified (6) Hypertension: Status: Chronic Category: Medical Code(s): I10 - Essential (primary) hypertension (7) Hyperlipidemia: Status: Chronic Category: Medical Code(s): E78.5 - Hyperlipidemia, unspecified (8) History of aortic aneurysm repair: Status: Chronic Category: Surgical Code(s): Z98.890 - Other specified postprocedural states; Z86.79 - Personal history of other diseases of the circulatory system Plan #Admit to medicine #Sepsis Meets criteria for leukocytosis, fever and pneumonia noted on chest imaging 30 mL/kg fluid bolus given, repeat lactic acid improved Continue broad-spectrum antibiotic coverage with vancomycin and Zosyn Blood cultures obtained prior to antibiotic administration Procalcitonin pending #Pneumonia Continue antibiotics as above Coarse cough noted, continue Mucinex Sputum culture if able Continue pulmonary toilet #Pulmonary nodule Left lower lobe spiculated nodule noted. Will consult pulmonology in a.m. #Tobacco use 2 pack-a-day smoker. Tobacco cessation education #HTN #HLD reports patient does not routinely take home medications. Has normal blood pressure without intervention. # History of aortic aneurysm repair Repaired, no other issues currently #Vancomycin Requires intensive moniotring for toxicity pharmacy consulted monitor renal function ad serum vanc level and adjust as appropriate
[2024-10-22] VITALS (20 sets, daily range): BP systolic 90–160; BP diastolic 50–86; PULSE 56–100; RESP 16–20; TEMP 36.6–40.3; O2SAT 90–94; BMI 34.4; BMI 34.3
[2024-10-22] MEDS: VANCOMYCIN CONSULT REQUEST 1 EACH NOTAPPLIC (00:05)
[2024-10-22] MEDS: 0.9 % SODIUM CHLORIDE 1000ML 1,000 ML 50 ML IV (00:05)
[2024-10-22 00:23] LABS: Reflex Lactic Add Lactic Reflex
[2024-10-22 00:27] LABS: Microscopic, Urine URINE MICROSCOPIC (MICROSCOPIC)
[2024-10-22 00:28] LABS: Appearance,Urine CLEAR (Clear); Bilirubin,Urine Negative (Negative); Blood, Urine 1+ (Negative); Color,Urine YELLOW (Yellow); Glucose,Urine (UA) Negative (Negative); Ketones,Urine Negative (Negative); Leukocyte Esterase,Urine Negative (Negative); Nitrate,Urine Negative (Negative); Protein,Urine Negative (Negative); Specific Gravity, Urine <= 1.005 (1.005-1.030); Urobilinogen,Urine 0.2 EU/dl (0.2)
[2024-10-22 00:29] LABS: Troponin I 0.03 ng/ml (0.00-0.034)
[2024-10-22 00:42] LABS: RBC,Urine Occasional #/hpf (0-3)
[2024-10-22] MEDS: SODIUM CHLORIDE 3% 15ML NEB 3 ML IH (00:53)
[2024-10-22 01:21] LABS: Adenovirus,PCR Not Detected (NotDetected); Bordetella Pertussis Not Detected (NotDetected); Chlamydophila Pneumoniae, PCR Not Detected (NotDetected); Coronavirus 19, PCR Not Detected (NotDetected); Coronavirus 229E Not Detected (NotDetected); Coronavirus NL63 Not Detected (NotDetected); Coronavirus OC43 Not Detected (NotDetected); Coronovirus HKU1,PCR Not Detected (NotDetected); Human Metapneumovirus Not Detected (NotDetected); Influenza A, PCR Not Detected (NotDetected); Influenza AH1, 2009 Not Detected (NotDetected); Influenza AH1, PCR Not Detected (NotDetected); Influenza AH3,PCR Not Detected (NotDetected); Influenza B, PCR Not Detected (NotDetected); Mycoplasma Pneumoniae, PCR Not Detected (NotDetected); Parainfluenza 1, PCR Not Detected (NotDetected); Parainfluenza 2, PCR Not Detected (NotDetected); Parainfluenza 3, PCR Not Detected (NotDetected); Parainfluenza 4, PCR Not Detected (NotDetected); Respiratory Syncytial Virus Not Detected (NotDetected); Rhinovirus/Enterovirus Not Detected (NotDetected)
[2024-10-22 01:41] LABS: Lactic Acid Follow Up (RFLX 1) 0.9 mmol/L (0.7-2.1)
[2024-10-22 02:18] LABS: Troponin I 0.02 ng/ml (0.00-0.034)
[2024-10-22] MEDS: ACETAMINOPHEN 325MG TAB 650 MG PO (03:20)
--- NOTE | 2024-10-22 03:48 | EXP.SEPSISRE ---
[facility] Tissue Perfusion Eval Sepsis Re-Evaluation Performed: Yes Date Performed: 10/22/24 Time Performed: 03:48
[2024-10-22] MEDS: IBUPROFEN 800 MG TABLET PO (04:27)
--- NOTE | 2024-10-22 04:32 | PC.NURSE ---
Addendum entered by Brittany Bajwa RN 10/22/24 05:50: Patient's rectal temperature at 05:00 was 102.3. Patient's rectal temperature was followed-up at 05:40 and it was 101.7. Patient's oral temperature was also taken (documented at 05:45) and it was 99.5. Perspiration was noted throughout the patient's body. Skin was also noticed to be slightly cooler to the touch (more warm than hot). Follow-up temperatures to be retaken accordingly (see vital sign assessments for more). Sydnee hugger on cool setting remains in place. Original Note: Mr Edison Echeverria was newly admitted on behalf of the documented diagnoses pneumonia and sepsis. He also had a fall at home prior to arriving at the hospital. Bruising was noted across the upper part of his forehead. He has reported having a loose, intermittent cough as well. A sputum sample remains uncollected, for the patient has not been able to produce sputum thus far. Upon auscultation of his lungs, coarse crackles were heard in the left lobes; diminished lung sounds were heard in the right lobes. Heart and bowel sounds were within normal findings. He ambulates independently (with supervision due to current reports of dizziness upon assessment) at baseline. Respiratory panel resulted (-) this shift. Incentive spirometer usage encouraged while awake. Vancomycin was administered per AUG. Normal saline continues to infuse at 50 mL/hr. Nasal cannula (1 L of oxygen) applied. He was observed to have eyes closed, respirations even and unlabored, and no apparent distress throughout the majority of the night until... Around 03:15 this shift, the patient complained of an abrupt onset of extreme chills and feeling feverish. The patient's temperature was immediately taken orally and had spiked to 102 even. Cooling was started by decreasing the room temperature to 68 degrees, removing the top blankets, and administering oral Tylenol per AUG. Temperature was rechecked as appropriately, and it had shown an increase to 103.3 post-administration of the Tylenol. [facility] was paged for new interventions. Oxygen saturations were also decreasing in the upper 80s; oxygen flow was increased to 2 L. Increased active cooling was initiated using the sydnee hugger on the cool setting and cold wash-rag compresses were applied. Ice packs were placed underneath the armpits and groin area. An oscillating fan was provided. Patient's rectal temperature was also taken after initiation of the extra cooling interventions and resulted at 104.5 (see vital sign assessments for specific times). An order for oral Motrin 800 mg ONCE was obtained and given per AUG. Titus GABO was made aware of all of this. She stated to continue the current active cooling measures while also making sure the patient's temperature doesn't decrease too quickly. Next temperature check will be taken rectally at 05:00. Current oxygen saturations remain in the low 90s. Other vital signs are stable at this time. The patient is resting in bed drinking fresh ice water. Active cooling measures remain ongoing. Call light is within reach.
[2024-10-22 06:44] LABS: Basophils # 0.1 K/mm3 (0-0.2); Basophils % 0.5 % (0.1-2.0); Eosinophils % 0.2 % (0.1-12.0); Hematocrit 37.5 % (42.0-52.0); Immature Granulocytes # 0.04 10^3uL; Immature Granulocytes % 0.3 %; Lymphocytes # 0.6 K/mm3 (0.7-4.5); Lymphocytes % 4.3 % (10-50); Mean Corpuscular HGB Conc 33.3 g/dL (31.8-35.4); Mean Corpuscular Hemoglobin 29.3 pg (27.0-31.2); Monocytes # 1.4 K/mm3 (0.1-1.0); Monocytes % 10.6 % (1.7-9.3); Neutrophils % 84.1 % (37.0-80.0); Nucleated Red Blood Cells # 0 10^3/uL; Nucleated Red Blood Cells % 0 %; Platelet Count 210 K/mm3 (142-424); Red Blood Count 4.26 M/mm3 (4.60-6.20); Red Cell Distribution Width 12.5 % (11.5-17.5); Red Cell Distribution Width-SD 40.3 fL
[2024-10-22 06:54] LABS: Anion Gap 5.9 mEq/L (5-15); Blood Urea Nitrogen 23 mg/dl (9-20); Calcium 7.8 mg/dl (8.4-10.2); Carbon Dioxide 29 mmol/L (22.0-30.0); Chloride 97 mmol/L (98-107); Chol/HDL Ratio 6.2 (1-3.5); Cholesterol 99 mg/dl (140-200); Creatinine Clearance Estimated 89 mL/min (50-200); Estimated Glomerular Filt Rate 73 ml/min (>60); GFR (African American) 88 ML/MIN (>60); Glucose 120 mg/dl (74-100); HDL Cholesterol 16 mg/dl (40-60); Sodium 129 mmol/L (136-145); Triglycerides 60 mg/dl (30-150); VLDL Cholesterol 12 mg/dL (0-40)
[2024-10-22 07:04] LABS: Direct LDL Cholesterol 67.16 mg/dL (100-129)
[2024-10-22 07:07] LABS: Hemoglobin 12.5 g/dL (14.1-18.0)
[2024-10-22 07:27] LABS: Potassium 2.9 mmoL/L (3.5-5.1)
--- NOTE | 2024-10-22 07:48 | EXP.PHA.CONS ---
Pharmacy Consult Date: 10/22/24 Time: 07:48 Referring provider: DR. LATHAM Reason for Consult:: VANCOMYCIN DOSING Allergies Allergy/AdvReac Type Severity Reaction Status Date / Time ciprofloxacin (From Cipro) Allergy Verified 04/15/24 08:19 naproxen (From Aleve) Allergy Verified 04/15/24 08:19 Home Medications ?Medication ?Instructions ?Recorded ?Confirmed ?Type aspirin 81 mg tablet,delayed 81 mg PO DAILY 04/15/24 10/21/24 History release amlodipine 5 mg tablet 5 mg PO DAILY 10/21/24 10/21/24 History sertraline 50 mg tablet 50 mg PO DAILY 10/21/24 10/21/24 History triamterene 37.5 37.5 tab PO DAILY 10/21/24 10/21/24 History mg-hydrochlorothiazide 25 mg tablet New Prescriptions to Start Prescriptions: Height: 1.68 m Weight: 97.069 kg Laboratory Results:: Laboratory Results - last 24 hr 10/21/24 20:00: WBC 13.3 H, RBC 4.90, Hgb 14.7, Hct 42.8, MCV 87.3, MCH 30.0, MCHC 34.3, RDW 12.6, Plt Count 277, MPV 9.6, Neut % (Auto) 78.3, Lymph % (Auto) 10.2, [place] % (Auto) 10.5 H, Eos % (Auto) 0.0 L, Baso % (Auto) 0.5, Neut # (Auto) 10.4 H, Lymph # (Auto) 1.4, [place] # (Auto) 1.4 H, Eos # (Auto) 0.0, Baso # (Auto) 0.1, Sodium 129 L, Potassium 3.2 L, Chloride 92 L, Carbon Dioxide 27, Anion Gap 13.2, BUN 23 H, Creatinine 1.30 H, Estimated Creat Clear 69, Estimated GFR 54 L, Est GFR ( Amer) 65, Glucose 143 H, Calcium 8.6, Total Bilirubin 1.0, AST 25, ALT 25, Alkaline Phosphatase 76, Troponin I 0.02, C-Reactive Protein 159.9 H, NT-Pro-B Natriuret Pep 533 H, Total Protein 7.6, Albumin 4.4, Globulin 3.2, Albumin/Globulin Ratio 1.4, Procalcitonin 0.241, TSH 1.53, Thyroxine (T4) 7.3 10/21/24 20:04: VBG pH 7.43 H, VBG pCO2 37.6, VBG pO2 45.1 H, VBG HCO3 24.5, VBG Total CO2 25.6, VBG O2 Saturation 81.4 H, VBG Base Excess 0.2, VBG Lactic Acid 3.8 H 10/21/24 20:22: SARS-CoV-2 (PCR) Not detected, Influenza A Untype (PCR) Not detected, Influenza Type B (PCR) Not detected 10/21/24 23:33: Troponin I 0.03 10/22/24 00:00: Chlamy pneumoniae PCR Not detected, Adenovirus (PCR) Not detected, B. pertussis DNA (PCR) Not detected, Coronavirus OC43 (PCR) Not detected, Coronavirus HKU1 (PCR) Not detected, Coronavirus 229E (PCR) Not detected, SARS-CoV-2 (PCR) Not detected, Coronavirus NL63 (PCR) Not detected, Human Metapneumovir PCR Not detected, Influenza A (H1) PCR Not detected, Influ A (H1N1/09) PCR Not detected, Influenza A (H3) PCR Not detected, Influenza Type A (PCR) Not detected, Influenza Type B (PCR) Not detected, M. pneumoniae (PCR) Not detected, Parainfluenza 1 (PCR) Not detected, Parainfluenza 2 (PCR) Not detected, Parainfluenza 3 (PCR) Not detected, Parainfluenza 4 (PCR) Not detected, RSV (PCR) Not detected, Entero/Rhino (PCR) Not detected 10/22/24 00:19: Urine Color Yellow, Urine Appearance Clear, Urine pH 6.0, Ur Specific [place] <= 1.005, Urine Protein Negative, Urine Glucose (UA) Negative, Urine Ketones Negative, Urine Blood 1+ A, Urine Nitrate Negative, Urine Bilirubin Negative, Urine Urobilinogen 0.2, Ur Leukocyte Esterase Negative, Urine RBC Occasional 10/22/24 01:17: Lactate 0.9, Troponin I 0.02 10/22/24 05:30: WBC 13.0 H, RBC 4.26 L, Hgb 12.5 L D, Hct 37.5 L, MCV 88.0, MCH 29.3, MCHC 33.3, RDW 12.5, Plt Count 210, MPV 10.0, Neut % (Auto) 84.1 H, Lymph % (Auto) 4.3 L, [place] % (Auto) 10.6 H, Eos % (Auto) 0.2, Baso % (Auto) 0.5, Neut # (Auto) 11.0 H, Lymph # (Auto) 0.6 L, [place] # (Auto) 1.4 H, Eos # (Auto) 0.0, Baso # (Auto) 0.1, Sodium 129 L, Potassium 2.9 L*, Chloride 97 L, Carbon Dioxide 29, Anion Gap 5.9, BUN 23 H, Creatinine 1.00 D, Estimated Creat Clear 89, Estimated GFR 73, Est GFR ( Amer) 88 D, Glucose 120 H, Calcium 7.8 L, Triglycerides 60, Cholesterol 99 L, LDL Cholesterol Direct 67.16 L, VLDL Cholesterol 12, HDL Cholesterol 16 L, Cholesterol/HDL Ratio 6.2 H Medical History: Medical History (Updated 10/21/24 @ 23:42 by Brittany Bajwa RN) Cataracts, bilateral Spermatocele Neoplasm of right patella Gangrene of gallbladder Abdominal aortic aneurysm Hypertension Assessment and Plan Assessment and plan all Dx Assessment and Plan for all problems:: Pharmacokinetic dosing service Objective: Patient: Floor: Age: 74 yo Serum creatinine: 1.00 mg/dL Height: 66.1 Inches Weight (kg): 97 Assessment: IBW (kg): 64.03 Dosing wt(kg): 97 Estimated Creatinine clearance (ml/min): 58.7 CRCL method: Cockcroft and Gault using ibw(default). Drug selected: Vancomycin Loading dose (mg): Vd (liters): 77.6 (factor used: 0.8 L/kg) Kris (hr-1): 0.053 Half life (hrs): 13.08 CLvanco=?? 4.113 L/hr Recommended dose: 1750 mg Interval: 18 hrs Infusion time (hrs): 2.0 Predicted peak (mcg/mL): 34.8 Predicted trough (mcg/mL): 14.90 Total body weight is being used for vancomycin dosing. Recommendations: Give Vancomycin 1750 mg q 18 hrs with an expected Cpeak of 34.8 mcg/ml and an expected Ctrough of 14.90 mcg/ml AUC 0-24 /LB Data: LB 0.5 mcg/mL:?? AUC/BL:? 1134.6 LB 1.0 mcg/mL:?? AUC/LB:? 567.3 --------- LB 1.5 mcg/mL:?? AUC/LB:? 378.2 LB 2.0 mcg/mL:?? AUC/LB:? 283.7 Thank you for the consult, will continue to follow. -FARHANA WHITING, MANUELD
--- NOTE | 2024-10-22 08:50 | HMH.PHAINT1 ---
Pharmacy Intervention Comments: HOME MEDICATION LIST VERIFIED USING LIST FROM OUTPATIENT PHARMACY
[2024-10-22] MEDS: PIPERACILLIN/TAZO 4.5 GM in 0.9 % SODIUM CHLORIDE 100 ML IV (08:55)
[2024-10-22] MEDS: guaiFENesin 600 MG TAB.ER.12H PO (08:56)
[2024-10-22] MEDS: POTASSIUM CHLORIDE 20MEQ TAB 40 MEQ PO ×3 (08:56→16:08)
--- NOTE | 2024-10-22 10:25 | EXP.PULM.CON ---
History of Present Illness History of present illness: Mr. French is a 74-year-old male greater than [id number] smoking history current smoker, not using any inhalers or oxygen supplementation at baseline, reported history of hypertension dyslipidemia presented to the ER status post fall. Patient upon admission found to be in sepsis with possible pneumonia and pulmonary was called for further evaluation and management. [facility] Disclaimer: The information contained in this section may have been updated after the patient was seen, as this information can be updated by other users. Medical History (Updated 10/22/24 @ 13:39 by Irene Naylor MD) Mediastinal lymphadenopathy Hilar lymphadenopathy Pulmonary emphysema Cataracts, bilateral Spermatocele Neoplasm of right patella Gangrene of gallbladder Abdominal aortic aneurysm Hypertension Surgical History Hx of tonsillectomy S/P AAA (abdominal aortic aneurysm) repair Hx of cholecystectomy Family History (Updated 10/21/24 @ 23:57 by Brittany Bajwa RN) Father Stroke Mother UTI (urinary tract infection) Social History (Updated 10/21/24 @ 23:59 by Brittany Bajwa RN) Smoking Status: Current every day smoker alcohol intake: former current occupational status: previously employed Travel in the last 8 weeks?: None Review of Systems Constitutional Constitutional: Reports anorexia and Denies body ache(s) Eyes Eyes: Denies eye discharge, Denies dry eyes, Denies irritation and Denies itchy eyes ENT Ears, Nose, Mouth, and Throat: Denies epistaxis, Denies facial pain, Denies lip swelling and Denies throat swelling *Cardiovascular Cardiovascular: Reports dyspnea and Reports dyspnea on exertion *Respiratory Respiratory: Reports change in phlegm color, Reports chest congestion, Reports cough, Reports dyspnea, Reports dyspnea on exertion, Reports excessive phlegm production, Denies hemoptysis, Denies pain on inspiration, Denies pain with cough and Reports wheezing *Gastrointestinal Gastrointestinal: Denies abdominal pain, Denies belching and Denies cramping *Musculoskeletal Musculoskeletal: Reports back pain, Reports myalgias and Reports other (No small joint swelling or Pain) Psychiatric Psychiatric: Denies homicidal ideation and Denies suicidal ideation Endocrine Endocrine: Denies heat intolerance Hematologic/Lymphatic Hematologic/Lymphatic: Denies easy bleeding and Denies lymphadenopathy Allergic/Immunologic Allergic/Immunologic: Denies itchy eyes, Denies lip swelling, Denies throat swelling and Reports wheezing Pulmonology Exam Inpatient Vital signs and Labs for Last 24 Hours: Temp Pulse Resp BP Pulse Ox O2 Del Method O2 Flow Rate 98.4 F 56 L 17 90/50 L 94 L Room Air 2 10/22/24 08:00 10/22/24 10:02 10/22/24 08:00 10/22/24 08:00 10/22/24 10:02 10/22/24 10:02 10/22/24 09:00 Laboratory Results - last 24 hr 10/21/24 20:00: WBC 13.3 H, RBC 4.90, Hgb 14.7, Hct 42.8, MCV 87.3, MCH 30.0, MCHC 34.3, RDW 12.6, Plt Count 277, MPV 9.6, Neut % (Auto) 78.3, Lymph % (Auto) 10.2, [place] % (Auto) 10.5 H, Eos % (Auto) 0.0 L, Baso % (Auto) 0.5, Neut # (Auto) 10.4 H, Lymph # (Auto) 1.4, [place] # (Auto) 1.4 H, Eos # (Auto) 0.0, Baso # (Auto) 0.1, Sodium 129 L, Potassium 3.2 L, Chloride 92 L, Carbon Dioxide 27, Anion Gap 13.2, BUN 23 H, Creatinine 1.30 H, Estimated Creat Clear 69, Estimated GFR 54 L, Est GFR ( Amer) 65, Glucose 143 H, Calcium 8.6, Total Bilirubin 1.0, AST 25, ALT 25, Alkaline Phosphatase 76, Troponin I 0.02, C-Reactive Protein 159.9 H, NT-Pro-B Natriuret Pep 533 H, Total Protein 7.6, Albumin 4.4, Globulin 3.2, Albumin/Globulin Ratio 1.4, Procalcitonin 0.241, TSH 1.53, Thyroxine (T4) 7.3 10/21/24 20:04: VBG pH 7.43 H, VBG pCO2 37.6, VBG pO2 45.1 H, VBG HCO3 24.5, VBG Total CO2 25.6, VBG O2 Saturation 81.4 H, VBG Base Excess 0.2, VBG Lactic Acid 3.8 H 10/21/24 20:22: SARS-CoV-2 (PCR) Not detected, Influenza A Untype (PCR) Not detected, Influenza Type B (PCR) Not detected 10/21/24 23:33: Troponin I 0.03 10/22/24 00:00: Chlamy pneumoniae PCR Not detected, Adenovirus (PCR) Not detected, B. pertussis DNA (PCR) Not detected, Coronavirus OC43 (PCR) Not detected, Coronavirus HKU1 (PCR) Not detected, Coronavirus 229E (PCR) Not detected, SARS-CoV-2 (PCR) Not detected, Coronavirus NL63 (PCR) Not detected, Human Metapneumovir PCR Not detected, Influenza A (H1) PCR Not detected, Influ A (H1N1/09) PCR Not detected, Influenza A (H3) PCR Not detected, Influenza Type A (PCR) Not detected, Influenza Type B (PCR) Not detected, M. pneumoniae (PCR) Not detected, Parainfluenza 1 (PCR) Not detected, Parainfluenza 2 (PCR) Not detected, Parainfluenza 3 (PCR) Not detected, Parainfluenza 4 (PCR) Not detected, RSV (PCR) Not detected, Entero/Rhino (PCR) Not detected 10/22/24 00:19: Urine Color Yellow, Urine Appearance Clear, Urine pH 6.0, Ur Specific [place] <= 1.005, Urine Protein Negative, Urine Glucose (UA) Negative, Urine Ketones Negative, Urine Blood 1+ A, Urine Nitrate Negative, Urine Bilirubin Negative, Urine Urobilinogen 0.2, Ur Leukocyte Esterase Negative, Urine RBC Occasional 10/22/24 01:17: Lactate 0.9, Troponin I 0.02 10/22/24 05:30: WBC 13.0 H, RBC 4.26 L, Hgb 12.5 L D, Hct 37.5 L, MCV 88.0, MCH 29.3, MCHC 33.3, RDW 12.5, Plt Count 210, MPV 10.0, Neut % (Auto) 84.1 H, Lymph % (Auto) 4.3 L, [place] % (Auto) 10.6 H, Eos % (Auto) 0.2, Baso % (Auto) 0.5, Neut # (Auto) 11.0 H, Lymph # (Auto) 0.6 L, [place] # (Auto) 1.4 H, Eos # (Auto) 0.0, Baso # (Auto) 0.1, Sodium 129 L, Potassium 2.9 L*, Chloride 97 L, Carbon Dioxide 29, Anion Gap 5.9, BUN 23 H, Creatinine 1.00 D, Estimated Creat Clear 89, Estimated GFR 73, Est GFR ( Amer) 88 D, Glucose 120 H, Calcium 7.8 L, Triglycerides 60, Cholesterol 99 L, LDL Cholesterol Direct 67.16 L, VLDL Cholesterol 12, HDL Cholesterol 16 L, Cholesterol/HDL Ratio 6.2 H I & O for Labs for Last 24 Hours: Intake & Output 10/19/24 10/20/24 10/21/24 10/22/24 23:59 23:59 23:59 23:59 Intake Total 1860 / 1860 Output Total 1550 / 1550 Balance 310 / 310 Weight 215 lb 214 lb Constitutional: Present mild distress Head: Present normocephalic and atraumatic ENT: Present normal exam, normal oropharynx and mucous membranes moist Neck: Present normal inspection and full ROM Respiratory: Present able to speak in complete sentences; Absent prolonged expiratory phase, rhonchi, wheezes or diminished air movement Cardiac: Present S1/S2, Tachycardia and radial pulses present GI: Present soft and distention; Absent tenderness or guarding Skin: Present intact; Absent cyanosis or jaundice Neuro: Present alert, awake and oriented x 3 Extremities: Present normal inspection; Absent clubbing or cyanosis Psychiatric: Present normal affect and cooperative Meds Home Medications and Allergies Home Medications ?Medication ?Instructions ?Recorded ?Confirmed ?Type aspirin 81 mg tablet,delayed 81 mg PO DAILY 04/15/24 10/21/24 History release amlodipine 5 mg tablet 5 mg PO DAILY 10/21/24 10/21/24 History sertraline 50 mg tablet 50 mg PO DAILY 10/21/24 10/21/24 History triamterene 37.5 1 tab PO DAILY 37.5/25MG 10/21/24 10/22/24 History mg-hydrochlorothiazide 25 mg tablet New Prescriptions to Start Prescriptions: Allergies Allergy/AdvReac Type Severity Reaction Status Date / Time ciprofloxacin (From Cipro) Allergy Verified 04/15/24 08:19 naproxen (From Aleve) Allergy Verified 04/15/24 08:19 Results Laboratory Findings 10/22/24 05:30 10/22/24 05:30 Abnormal lab findings: Abnormal Labs 10/21/24 10/21/24 10/22/24 20:00 20:04 00:19 WBC 13.3 H RBC Hgb Hct Neut % (Auto) Lymph % (Auto) [place] % (Auto) 10.5 H Eos % (Auto) 0.0 L Neut # (Auto) 10.4 H Lymph # (Auto) [place] # (Auto) 1.4 H VBG pH 7.43 H VBG pO2 45.1 H VBG O2 Saturation 81.4 H VBG Lactic Acid 3.8 H Sodium 129 L Potassium 3.2 L Chloride 92 L BUN 23 H Creatinine 1.30 H Estimated GFR 54 L Glucose 143 H Calcium C-Reactive Protein 159.9 H NT-Pro-B Natriuret Pep 533 H Cholesterol LDL Cholesterol Direct HDL Cholesterol Cholesterol/HDL Ratio Urine Blood 1+ A 10/22/24 05:30 WBC 13.0 H RBC 4.26 L Hgb 12.5 L D Hct 37.5 L Neut % (Auto) 84.1 H Lymph % (Auto) 4.3 L [place] % (Auto) 10.6 H Eos % (Auto) Neut # (Auto) 11.0 H Lymph # (Auto) 0.6 L [place] # (Auto) 1.4 H VBG pH VBG pO2 VBG O2 Saturation VBG Lactic Acid Sodium 129 L Potassium 2.9 L* Chloride 97 L BUN 23 H Creatinine Estimated GFR Glucose 120 H Calcium 7.8 L C-Reactive Protein NT-Pro-B Natriuret Pep Cholesterol 99 L LDL Cholesterol Direct 67.16 L HDL Cholesterol 16 L Cholesterol/HDL Ratio 6.2 H Urine Blood Assessment and Plan *Assessment and plan (1) Lung mass: Status: Acute Category: Medical Code(s): R91.8 - Other nonspecific abnormal finding of lung field (2) Pneumonia: Status: Acute Category: Medical Code(s): J18.9 - Pneumonia, unspecified organism (3) Pulmonary emphysema: Status: Acute Category: Medical Code(s): J43.9 - Emphysema, unspecified (4) Hilar lymphadenopathy: Status: Acute Category: Medical Code(s): R59.0 - Localized enlarged lymph nodes (5) Mediastinal lymphadenopathy: Status: Acute Category: Medical Code(s): R59.0 - Localized enlarged lymph nodes Plan Mr. French is a 74-year-old male greater than 16-eoxy-gdpr smoking history current smoker, not using any inhalers or oxygen supplementation at baseline, reported history of hypertension dyslipidemia presented to the ER status post fall. Patient upon admission found to be in sepsis with possible pneumonia and pulmonary was called for further evaluation and management. CTA upon admission, no evidence of pulmonary embolism. Left upper lobe consolidative changes. Left lower lobe pleural-based spiculated nodule at 3 cm in size. Left hilar along with borderline station 7 lymphadenopathy noted. No concerning lesions noted on his chest x-ray from 2022. Mild neutrophilic predominant leukocytosis. Comprehensive respiratory viral PCR panel negative. Currently receiving broad-spectrum antibiotics including vancomycin and Zosyn. Blood and sputum cultures pending. Examination no severe respiratory distress. No significant wheezing noted on auscultation. Plan: Extensively discussed with the patient regarding the possible options to manage his lung nodule including biopsy/proceeding with a PET CT scan. Patient opted to do a PET CT scan instead of biopsy at this point of time. Will proceed with scheduling a PET CT scan follow the patient in the clinic after PET CT scan Antibiotics can be weaned to cefdinir to complete a total of 5-day course for the noted left upper lobe pneumonia. Follow with final sputum culture results Initiate Trelegy 100 inhaler along with albuterol 4 times daily. As patient can be discharged from pulmonary standpoint at this point of time. Will follow the patient in pulmonary clinic after PET CT scan.
--- NOTE | 2024-10-22 11:07 | SW/DCPLANNER ---
Per Dr Patrick and [facility] therapy is not needed at this time.
[2024-10-22] MEDS: FLUTICASONE/UMECLIDIN/VILANTER 100/62.5/25MCG INHALER 1 PUFF IH (12:12)
[2024-10-22] MEDS: AZITHROMYCIN 500 MG in 0.9 % SODIUM CHLORIDE 250 ML 250 MG IV (12:12)
[2024-10-22] MEDS: CEFTRIAXONE 1 GM 1 GM in 0.9 % SODIUM CHLORIDE 50 ML IV (13:30)
--- NOTE | 2024-10-22 16:18 | P.DS_ITS ---
General Admission date:: 10/21/24 Discharge date: 10/22/24 HPI HPI HPI: This is a 74-year-old male with a past medical history of COPD, tobacco use, hypertension, hyperlipidemia who presents emergency department today with concern for fall. is at the bedside and provides collateral and states that he has had several days of feeling generally unwell. She reports chronic cough with tobacco use but states this cough may have been a little bit different. 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 Oxygen saturations have been okay. Patient himself reports feeling very lightheaded and off-balance today. He reports going to the bathroom and falling forward into the bathtub and hitting his head against the wall. He endorses general malaise and fatigue. Cough and runny nose. Emergency department workup notable for sepsis on arrival with fever of 103, leukocytosis with a white blood cell count of 13. Lactic acid of 3.8, sodium of 129, potassium of 3.2, CRP of 159. Chest imaging notable for left upper lobe airspace opacity favoring pneumonia. Left lower lobe 3 cm spiculated nodule with recommendations for follow-up PET or CT tissue sampling. Given his sepsis, he was covered with vancomycin and Zosyn after blood cultures obtained. He is admitted to hospital service at this time Hospital Course Hospital Course Hospital Course: 74-year-old male with extensive smoking history who presented with shortness of breath and fever to the ER. Found to have pneumonia and concern for lung mass. Pulmonology consulted to assist with care. Admitted to medicine for further management. Symptoms showed significant improvement from admission. Able to wean to room air prior to discharge. Plan for close follow-up. Problems addressed as follows: #Sepsis #Pneumonia # Pulmonary nodule Met sepsis criteria on admission with leukocytosis, fever, pneumonia. Received fluid bolus and broad-spectrum antibiotics with vancomycin and Zosyn. Blood and sputum cultures obtained. Chest CTA obtained showing left upper lobe airspace opacification consistent with pneumonia. Also found to have left lower lobe 3 cm spiculated nodule concerning for possible malignancy. Recommend PET/CT as outpatient. Pulmonology consulted. Patient to follow-up with pulmonology as an outpatient. Initially treated with broad-spectrum antibiotics for pneumonia, weaned to cefdinir to complete empiric course. Initially requiring 2 L oxygen, weaned to room air by morning of discharge. White count 13. Overall doing well. Resume Trelegy inhaler daily #Tobacco use 2 pack-a-day smoker. Tobacco cessation education provided. Patient precontemplative at this time #HTN #HLD reports patient does not routinely take home medications. Has normal blood pressure without intervention. Strongly encourage resuming amlodipine 5 mg daily along with triamterene HCTZ. Reevaluated outpatient follow-up. Anxiety/depression: Continue Zoloft 50 mg daily # History of aortic aneurysm repair: Stable. History of repair. No current issues Electrolyte disturbances noted on day of discharge. Mild hyponatremia with no confusion. Sodium 129. Stable. Potassium 2.9, replaced IV. Total time spent on discharge 38 minutes in counseling, documentation, chart r eview, and direct care with patient. Exam Data for Last 24 hours Vital signs and Labs for Last 24 Hours: Temp Pulse Resp BP Pulse Ox O2 Del Method O2 Flow Rate 98.4 F 93 H 20 160/86 H 93 L Nasal Cannula 2 10/22/24 15:26 10/22/24 15:26 10/22/24 15:26 10/22/24 15:26 10/22/24 15:26 10/22/24 15:26 10/22/24 09:00 Laboratory Results - last 24 hr 10/21/24 20:00: WBC 13.3 H, RBC 4.90, Hgb 14.7, Hct 42.8, MCV 87.3, MCH 30.0, MCHC 34.3, RDW 12.6, Plt Count 277, MPV 9.6, Neut % (Auto) 78.3, Lymph % (Auto) 10.2, [place] % (Auto) 10.5 H, Eos % (Auto) 0.0 L, Baso % (Auto) 0.5, Neut # (Auto) 10.4 H, Lymph # (Auto) 1.4, [place] # (Auto) 1.4 H, Eos # (Auto) 0.0, Baso # (Auto) 0.1, Sodium 129 L, Potassium 3.2 L, Chloride 92 L, Carbon Dioxide 27, Anion Gap 13.2, BUN 23 H, Creatinine 1.30 H, Estimated Creat Clear 69, Estimated GFR 54 L, Est GFR ( Amer) 65, Glucose 143 H, Calcium 8.6, Total Bilirubin 1.0, AST 25, ALT 25, Alkaline Phosphatase 76, Troponin I 0.02, C-Reactive Protein 159.9 H , NT-Pro-B Natriuret Pep 533 H, Total Protein 7.6, Albumin 4.4, Globulin 3.2, Albumin/Globulin Ratio 1.4, Procalcitonin 0.241, TSH 1.53, Thyroxine (T4) 7.3 10/21/24 20:04: VBG pH 7.43 H, VBG pCO2 37.6, VBG pO2 45.1 H, VBG HCO3 24.5, VBG Total CO2 25.6, VBG O2 Saturation 81.4 H, VBG Base Excess 0.2, VBG Lactic Acid 3.8 H 10/21/24 20:22: SARS-CoV-2 (PCR) Not detected, Influenza A Untype (PCR) Not detected, Influenza Type B (PCR) Not detected 10/21/24 23:33: Troponin I 0.03 10/22/24 00:00: Chlamy pneumoniae PCR Not detected, Adenovirus (PCR) Not detected, B. pertussis DNA (PCR) Not detected, Coronavirus OC43 (PCR) Not detected, Coronavirus HKU1 (PCR) Not detected, Coronavirus 229E (PCR) Not detected, SARS-CoV-2 (PCR) Not detected, Coronavirus NL63 (PCR) Not detected, Human Metapneumovir PCR Not detected, Influenza A (H1) PCR Not detected, Influ A (H1N1/09) PCR Not detected, Influenza A (H3) PCR Not detected, Influenza Type A (PCR) Not detected, Influenza Type B (PCR) Not detected, M. pneumoniae (PCR) Not detected, Parainfluenza 1 (PCR) Not detected, Parainfluenza 2 (PCR) Not detected, Parainfluenza 3 (PCR) Not detected, Parainfluenza 4 (PCR) Not detected, RSV (PCR) Not detected, Entero/Rhino (PCR) Not detected 10/22/24 00:19: Urine Color Yellow, Urine Appearance Clear, Urine pH 6.0, Ur Specific [place] <= 1.005, Urine Protein Negative, Urine Glucose (UA) Negative, Urine Ketones Negative, Urine Blood 1+ A, Urine Nitrate Negative, Urine Bilirubin Negative, Urine Urobilinogen 0.2, Ur Leukocyte Esterase Negative, Urine RBC Occasional 10/22/24 01:17: Lactate 0.9, Troponin I 0.02 10/22/24 05:30: WBC 13.0 H, RBC 4.26 L, Hgb 12.5 L D, Hct 37.5 L, MCV 88.0, MCH 29.3, MCHC 33.3, RDW 12.5, Plt Count 210, MPV 10.0, Neut % (Auto) 84.1 H, Lymph % (Auto) 4.3 L, [place] % (Auto) 10.6 H, Eos % (Auto) 0.2, Baso % (Auto) 0.5, Neut # (Auto) 11.0 H, Lymph # (Auto) 0.6 L, [place] # (Auto) 1.4 H, Eos # (Auto) 0.0, Baso # (Auto) 0.1, Sodium 129 L, Potassium 2.9 L*, Chloride 97 L, Carbon Dioxide 29, Anion Gap 5.9, BUN 23 H, Creatinine 1.00 D, Estimated Creat Clear 89, Estimated GFR 73, Est GFR ( Amer) 88 D, Glucose 120 H, Calcium 7.8 L, Triglycerides 60, Cholesterol 99 L, LDL Cholesterol Direct 67.16 L, VLDL Cholesterol 12, HDL Cholesterol 16 L, Cholesterol/HDL Ratio 6.2 H I & O for Last 24 hours: Intake & Output 10/19/24 10/20/24 10/21/24 10/22/24 23:59 23:59 23:59 23:59 Intake Total 2220 / 2220 Output Total 1550 / 1550 Balance 670 / 670 Weight 97.522 kg 97 kg Microbiology Reports for the Last 24 Hours: Microbiology 10/22/24 10:05 Sputum - Expectorated Sputum Gram Stain - Final Constitutional Constitutional: no acute distress *Routine HEENT Exam Head: Present normocephalic Eye: Present EOMI and PERRL ENT: Present mucous membranes moist *Routine Neck Exam Neck: Present supple; Absent lymphadenopathy *Routine Respiratory Exam Respiratory: Present rhonchi; Absent accessory muscle use, wheezes or crackles *Routine Cardiovascular Exam Cardiovascular: Present RRR *Routine Abdominal Exam Abdominal: Present soft and normoactive bowel sounds; Absent tenderness *Routine Rectal Exam Patient deferred: visual exam *Routine Exam Patient deferred: penile exam *Routine Extremities Exam Extremities: Absent cyanosis, clubbing or edema *Routine Skin Exam Skin: Present warm; Absent rash *Routine Neurological Exam Neurological: Present alert, oriented X3 and moving all extremities; Absent altered mental status Results Data Completed and Pending Labs on day of discharge: Labs from last 24 hours 10/22/24 10/22/24 10/22/24 05:30 01:17 00:19 WBC 13.0 H RBC 4.26 L Hgb 12.5 L D Hct 37.5 L MCV 88.0 MCH 29.3 MCHC 33.3 RDW 12.5 Plt Count 210 MPV 10.0 Neut % (Auto) 84.1 H Lymph % (Auto) 4.3 L [place] % (Auto) 10.6 H Eos % (Auto) 0.2 Baso % (Auto) 0.5 Neut # (Auto) 11.0 H Lymph # (Auto) 0.6 L [place] # (Auto) 1.4 H Eos # (Auto) 0.0 Baso # (Auto) 0.1 VBG pH VBG pCO2 VBG pO2 VBG HCO3 VBG Total CO2 VBG O2 Saturation VBG Base Excess VBG Lactic Acid Sodium 129 L Potassium 2.9 L* Chloride 97 L Carbon Dioxide 29 Anion Gap 5.9 BUN 23 H Creatinine 1.00 D Estimated Creat Clear 89 Estimated GFR 73 Est GFR ( Amer) 88 D Glucose 120 H Lactate 0.9 Calcium 7.8 L Total Bilirubin AST ALT Alkaline Phosphatase Troponin I 0.02 C-Reactive Protein NT-Pro-B Natriuret Pep Total Protein Albumin Globulin Albumin/Globulin Ratio Triglycerides 60 Cholesterol 99 L LDL Cholesterol Direct 67.16 L VLDL Cholesterol 12 HDL Cholesterol 16 L Cholesterol/HDL Ratio 6.2 H Procalcitonin TSH Thyroxine (T4) Urine Color Yellow Urine Appearance Clear Urine pH 6.0 Ur Specific [place] <= 1.005 Urine Protein Negative Urine Glucose (UA) Negative Urine Ketones Negative Urine Blood 1+ A Urine Nitrate Negative Urine Bilirubin Negative Urine Urobilinogen 0.2 Ur Leukocyte Esterase Negative Urine RBC Occasional Chlamy pneumoniae PCR Adenovirus (PCR) B. pertussis DNA (PCR) Coronavirus OC43 (PCR) Coronavirus HKU1 (PCR) Coronavirus 229E (PCR) SARS-CoV-2 (PCR) Coronavirus NL63 (PCR) Human Metapneumovir PCR Influenza A (H1) PCR Influ A (H1N1/09) PCR Influenza A (H3) PCR Influenza Type A (PCR) Influenza A Untype (PCR) Influenza Type B (PCR) M. pneumoniae (PCR) Parainfluenza 1 (PCR) Parainfluenza 2 (PCR) Parainfluenza 3 (PCR) Parainfluenza 4 (PCR) RSV (PCR) Entero/Rhino (PCR) 10/22/24 10/21/24 10/21/24 00:00 23:33 20:22 WBC RBC Hgb Hct MCV MCH MCHC RDW Plt Count MPV Neut % (Auto) Lymph % (Auto) [place] % (Auto) Eos % (Auto) Baso % (Auto) Neut # (Auto) Lymph # (Auto) [place] # (Auto) Eos # (Auto) Baso # (Auto) VBG pH VBG pCO2 VBG pO2 VBG HCO3 VBG Total CO2 VBG O2 Saturation VBG Base Excess VBG Lactic Acid Sodium Potassium Chloride Carbon Dioxide Anion Gap BUN Creatinine Estimated Creat Clear Estimated GFR Est GFR ( Amer) Glucose Lactate Calcium Total Bilirubin AST ALT Alkaline Phosphatase Troponin I 0.03 C-Reactive Protein NT-Pro-B Natriuret Pep Total Protein Albumin Globulin Albumin/Globulin Ratio Triglycerides Cholesterol LDL Cholesterol Direct VLDL Cholesterol HDL Cholesterol Cholesterol/HDL Ratio Procalcitonin TSH Thyroxine (T4) Urine Color Urine Appearance Urine pH Ur Specific [place] Urine Protein Urine Glucose (UA) Urine Ketones Urine Blood Urine Nitrate Urine Bilirubin Urine Urobilinogen Ur Leukocyte Esterase Urine RBC Chlamy pneumoniae PCR Not detected Adenovirus (PCR) Not detected B. pertussis DNA (PCR) Not detected Coronavirus OC43 (PCR) Not detected Coronavirus HKU1 (PCR) Not detected Coronavirus 229E (PCR) Not detected SARS-CoV-2 (PCR) Not detected Not detected Coronavirus NL63 (PCR) Not detected Human Metapneumovir PCR Not detected Influenza A (H1) PCR Not detected Influ A (H1N1) PCR Not detected Influenza A (H3) PCR Not detected Influenza Type A (PCR) Not detected Influenza A Untype (PCR) Not detected Influenza Type B (PCR) Not detected Not detected M. pneumoniae (PCR) Not detected Parainfluenza 1 (PCR) Not detected Parainfluenza 2 (PCR) Not detected Parainfluenza 3 (PCR) Not detected Parainfluenza 4 (PCR) Not detected RSV (PCR) Not detected Entero/Rhino (PCR) Not detected 10/21/24 10/21/24 20:04 20:00 WBC 13.3 H RBC 4.90 Hgb 14.7 Hct 42.8 MCV 87.3 MCH 30.0 MCHC 34.3 RDW 12.6 Plt Count 277 MPV 9.6 Neut % (Auto) 78.3 Lymph % (Auto) 10.2 [place] % (Auto) 10.5 H Eos % (Auto) 0.0 L Baso % (Auto) 0.5 Neut # (Auto) 10.4 H Lymph # (Auto) 1.4 [place] # (Auto) 1.4 H Eos # (Auto) 0.0 Baso # (Auto) 0.1 VBG pH 7.43 H VBG pCO2 37.6 VBG pO2 45.1 H VBG HCO3 24.5 VBG Total CO2 25.6 VBG O2 Saturation 81.4 H VBG Base Excess 0.2 VBG Lactic Acid 3.8 H Sodium 129 L Potassium 3.2 L Chloride 92 L Carbon Dioxide 27 Anion Gap 13.2 BUN 23 H Creatinine 1.30 H Estimated Creat Clear 69 Estimated GFR 54 L Est GFR ( Amer) 65 Glucose 143 H Lactate Calcium 8.6 Total Bilirubin 1.0 AST 25 ALT 25 Alkaline Phosphatase 76 Troponin I 0.02 C-Reactive Protein 159.9 H NT-Pro-B Natriuret Pep 533 H Total Protein 7.6 Albumin 4.4 Globulin 3.2 Albumin/Globulin Ratio 1.4 Triglycerides Cholesterol LDL Cholesterol Direct VLDL Cholesterol HDL Cholesterol Cholesterol/HDL Ratio Procalcitonin 0.241 TSH 1.53 Thyroxine (T4) 7.3 Urine Color Urine Appearance Urine pH Ur Specific [place] Urine Protein Urine Glucose (UA) Urine Ketones Urine Blood Urine Nitrate Urine Bilirubin Urine Urobilinogen Ur Leukocyte Esterase Urine RBC Chlamy pneumoniae PCR Adenovirus (PCR) B. pertussis DNA (PCR) Coronavirus OC43 (PCR) Coronavirus HKU1 (PCR) Coronavirus 229E (PCR) SARS-CoV-2 (PCR) Coronavirus NL63 (PCR) Human Metapneumovir PCR Influenza A (H1) PCR Influ A (H1N1/09) PCR Influenza A (H3) PCR Influenza Type A (PCR) Influenza A Untype (PCR) Influenza Type B (PCR) M. pneumoniae (PCR) Parainfluenza 1 (PCR) Parainfluenza 2 (PCR) Parainfluenza 3 (PCR) Parainfluenza 4 (PCR) RSV (PCR) Entero/Rhino (PCR) DS: Diagnosis Discharge Diagnosis (1) Lung mass: Status: Acute Code(s): R91.8 - Other nonspecific abnormal finding of lung field (2) Pneumonia: Status: Acute Code(s): J18.9 - Pneumonia, unspecified organism (3) Pulmonary emphysema: Status: Acute Code(s): J43.9 - Emphysema, unspecified (4) Hilar lymphadenopathy: Status: Acute Code(s): R59.0 - Localized enlarged lymph nodes (5) Mediastinal lymphadenopathy: Status: Acute Code(s): R59.0 - Localized enlarged lymph nodes Meds Home Medications and Allergies Home Medications ?Medication ?Instructions ?Recorded ?Confirmed ?Type aspirin 81 mg tablet,delayed 81 mg PO DAILY 04/15/24 10/27/24 History release amlodipine 5 mg tablet 5 mg PO DAILY 10/21/24 10/27/24 History sertraline 50 mg tablet 50 mg PO DAILY 10/21/24 10/27/24 History triamterene 37.5 1 tab PO DAILY 37.5/25MG 10/21/24 10/27/24 History mg-hydrochlorothiazide 25 mg tablet cefdinir 300 mg capsule 300 mg PO BID #10 caps 10/22/24 10/27/24 Rx fluticasone fur. 100 mcg-umeclid 1 inh inhalation DAILY 30 days #60 10/22/24 10/27/24 Rx 62.5 mcg-vilant 25 mcg ea inhalat.powder (Trelegy Ellipta) potassium chloride 20 mEq 40 meq (2 x 20 mEq) PO DAILY 10 10/22/24 10/27/24 Rx tablet,extended days #20 tabs release(part/cryst) (Klor-Con M) fluconazole 150 mg tablet 150 mg PO Q3D 2 doses #2 tabs 10/27/24 10/27/24 Rx zolpidem 5 mg tablet 5 mg PO HS PRN sleep #14 tabs 10/27/24 10/27/24 Rx New Prescriptions to Start Prescriptions: Mukund Venegas [id number] [Trelegy Ellipta] Mukund Patrick potassium chloride [Klor-Con M20] Mukund Patrick Allergies Allergy/AdvReac Type Severity Reaction Status Date / Time ciprofloxacin (From Cipro) Allergy Verified 10/27/24 14:08 naproxen (From Aleve) Allergy Verified 10/27/24 14:08 Discharge Plan Disposition Patient Disposition: Home, Self-Care Condition: Good Discharge Order Discharge Orders: Discharge Order (Routine); Ordered 10/22/24 Ordered By: Mukund Patrick Follow up Plan Follow up with: Shun Baker MD [Primary Care Provider] - 10/28/24 10:00 am Irene Naylor MD [Physician] - Enter time for follow up (please call for appointment) Prescriptions/Medication Reconciliation: New potassium chloride [Klor-Con M20] 20 mEq Tablet,Er Particles/Crystals 40 meq PO DAILY 10 Days Qty: 20 0RF Trelegy Ellipta 100-62.5-25 mcg Blister With Device 1 inh inhalation DAILY 30 Days Qty: 60 0RF cefdinir 300 mg capsule 300 mg PO BID Qty: 10 0RF Continued aspirin 81 mg tablet,delayed release (DR/EC) 81 mg PO DAILY amlodipine 5 mg tablet 5 mg PO DAILY triamterene-hydrochlorothiazid 37.5-25 mg tablet 1 tab PO DAILY sertraline 50 mg tablet 50 mg PO DAILY No Action zolpidem 5 mg tablet 5 mg PO HS PRN (Reason: sleep) Qty: 14 0RF fluconazole 150 mg tablet 150 mg PO Q3D Qty: 2 0RF Problem Reconciliation Problems Reviewed?: Yes Patient Discharge Instructions ACTIVITY: Continue current activity DIET: continue same diet Patient Instructions: DI for Pneumonia -- Adult, DI for Sepsis -- Adult Print Language: Telugu Providers Primary Care Provider: Shun Baker Admit Provider: Mukund Patrick Attending Provider: Mukund Patrick
--- NOTE | 2024-10-25 11:27 | SW/DCPLANNER ---
Spoke with patient on the phone. Patient stated that he is doing good. Patient stated that he is aware of his upcoming appointments. Patient stated that he was able to get his medicine picked up from clinic pharmacy. Patient stated that he has no concerns or questions at this time. GERALDINE Chung
== END 2024-10-22 17:43 | disposition home or self-care (01) | DRG 871 ==
LOC: ER 22:18 → 2ND 22:41
PROVIDERS: Nurse Practitioner Acute Care; Admitting Provider Internal Medicine Adolescent Medicine; Emergency Provider Emergency Medicine; PCP Internal Medicine; Visit Provider Internal Medicine Adolescent Medicine
DX: A41.9 Sepsis, unspecified organism (principal); J18.9 Pneumonia, unspecified organism; E87.1 Hypo-osmolality and hyponatremia; N17.9 Acute kidney failure, unspecified; J44.9 Chronic obstructive pulmonary disease, unspecified; R91.1 Solitary pulmonary nodule; I10 Essential (primary) hypertension; F17.210 Nicotine dependence, cigarettes, uncomplicated; F32.A Depression, unspecified; W18.12XA Fall from or off toilet with subsequent striking against object, initial encounter; E87.6 Hypokalemia; Y92.002 Bathroom of unspecified non-institutional (private) residence as the place of occurrence of the external cause; E66.9 Obesity, unspecified; E78.5 Hyperlipidemia, unspecified; R79.89 Other specified abnormal findings of blood chemistry; F41.9 Anxiety disorder, unspecified; Z86.79 Personal history of other diseases of the circulatory system; Z79.82 Long term (current) use of aspirin; Z82.3 Family history of stroke; Z88.6 Allergy status to analgesic agent; Z88.1 Allergy status to other antibiotic agents; Z85.89 Personal history of malignant neoplasm of other organs and systems; Z98.890 Other specified postprocedural states; Z90.49 Acquired absence of other specified parts of digestive tract; Z91.148 Patient's other noncompliance with medication regimen for other reason; Z68.34 Body mass index [BMI] 34.0-34.9, adult
CPT/HCPCS: 36415; 70450; 71275; 72125; 72128; 72131; 74177; 80048; 80053; 80061; 81001; 82803; 83605; 83880; 84145; 84436; 84443; 84484; 85025; 86140; 87040; 87070; 87205; 87633; 87636; 99291; J0131; J0456; J0696; J2543; J3372; J7030; J7050; J7120; Q9967

== ENCOUNTER 2024-10-28 16:11 | Outpatient (CLI) | payer MEDICARE, OTHER, SELFPAY ==
[2024-10-28 08:59] LABS: Basophils # 0.1 K/mm3 (0-0.2); Basophils % 0.7 % (0.1-2.0); Eosinophils # 0.5 Kmm3 (0.0-0.4); Eosinophils % 3.9 % (0.1-12.0); Hematocrit 43.3 % (42.0-52.0); Hemoglobin 13.4 g/dL (14.1-18.0); Immature Granulocytes # 0.42 10^3uL; Immature Granulocytes % 3.2 %; Lymphocytes # 1.7 K/mm3 (0.7-4.5); Lymphocytes % 12.9 % (10-50); Mean Corpuscular HGB Conc 30.9 g/dL (31.8-35.4); Mean Corpuscular Hemoglobin 29.4 pg (27.0-31.2); Mean Platelet Volume 9.8 fl (7.4-10.4); Monocytes # 1.1 K/mm3 (0.1-1.0); Monocytes % 8.1 % (1.7-9.3); Neutrophils # 9.4 K/mm3 (1.8-7.8); Neutrophils % 71.2 % (37.0-80.0); Nucleated Red Blood Cells # 0 10^3/uL; Nucleated Red Blood Cells % 0 %; Platelet Count 497 K/mm3 (142-424); Red Blood Count 4.56 M/mm3 (4.60-6.20); Red Cell Distribution Width 13.5 % (11.5-17.5); Red Cell Distribution Width-SD 47.5 fL; White Blood Count 13.2 K/mm3 (4.8-10.8)
[2024-10-28 17:23] LABS: Anion Gap 11.2 mEq/L (5-15); Blood Urea Nitrogen 20 mg/dl (9-20); Calcium 8.6 mg/dl (8.4-10.2); Carbon Dioxide 29 mmol/L (22.0-30.0); Chloride 103 mmol/L (98-107); Estimated Glomerular Filt Rate 73 ml/min (>60); GFR (African American) 88 ML/MIN (>60); Glucose 108 mg/dl (74-100); Potassium 5.2 mmoL/L (3.5-5.1); Sodium 138 mmol/L (136-145)
== END 2024-10-28 23:59 | disposition home or self-care (01) ==
LOC: LAB 16:12
PROVIDERS: PCP Internal Medicine; Visit Provider Internal Medicine
DX: J18.9 Pneumonia, unspecified organism (principal); E87.1 Hypo-osmolality and hyponatremia; E87.6 Hypokalemia; I10 Essential (primary) hypertension
CPT/HCPCS: 36415; 80048; 85025

== ENCOUNTER 2024-12-08 09:27 | Outpatient (CLI) | payer MEDICARE, OTHER, SELFPAY ==
--- NOTE | 2024-12-08 09:31 | XR_ITS ---
FINAL REPORT TECHNIQUE: Chest PA & Lateral CLINICAL HISTORY: Follow-up on previous pneumonia and lung mass COMPARISON: CTA chest 10/21/2024 FINDINGS: 2 views of the chest were performed. The heart size is normal. The mediastinum is within normal limits. Interval resolution of the previously seen left upper lobe pneumonia. Lobular mass in the periphery of the left lung measuring 4.1 cm corresponds to the mass seen on prior CT scan of October 2024. This mass is highly concerning for malignancy. There are no pleural effusions. There is no pneumothorax. The bony thorax appears intact. IMPRESSION: Left lung mass highly concerning for malignancy. Tissue sampling and/or PET-CT recommended. Interval resolution left upper lobe pneumonia. Reviewed, Interpreted and Dictated by Bonifacio Williamson MD Transcribed by Trudy Santana Authenticated and [facility]
[2024-12-08 14:49] LABS: Hematocrit 46.3 % (42.0-52.0); Hemoglobin 14.8 g/dL (14.1-18.0); Immature Granulocytes % 0.6 %; Mean Corpuscular HGB Conc 32.0 g/dL (31.8-35.4); Mean Corpuscular Hemoglobin 29.0 pg (27.0-31.2); Mean Corpuscular Volume 90.8 fl (80-94); Nucleated Red Blood Cells % 0 %; Platelet Count 319 K/mm3 (142-424); Red Blood Count 5.10 M/mm3 (4.60-6.20); Red Cell Distribution Width-SD 44.1 fL; White Blood Count 10.4 K/mm3 (4.8-10.8)
[2024-12-08 15:26] LABS: Alanine Aminotransferase 26 U/L (12-78); Albumin Level 4.4 g/dl (3.5-5.0); Albumin/Globulin Ratio 1.5 (1.1-1.8); Alkaline Phosphatase 85 U/L (38-126); Anion Gap 14.8 mEq/L (5-15); Aspartate Amino Transferase 25 U/L (17-59); Bilirubin,Total 0.5 mg/dl (0.2-1.3); Blood Urea Nitrogen 19 mg/dl (9-20); Calcium 9.3 mg/dl (8.4-10.2); Carbon Dioxide 31 mmol/L (22.0-30.0); Chloride 96 mmol/L (98-107); Cholesterol 158 mg/dl (140-200); Creatinine,Serum 1.00 mg/dl (0.66-1.25); Estimated Glomerular Filt Rate 73 ml/min (>60); GFR (African American) 88 ML/MIN (>60); Globulin 2.9 g/dL (1.3-3.2); Glucose 87 mg/dl (74-100); HDL Cholesterol 24 mg/dl (40-60); Potassium 4.8 mmoL/L (3.5-5.1); Sodium 137 mmol/L (136-145); Total Protein,Serum 7.3 g/dl (6.3-8.2); Triglycerides 166 mg/dl (30-150)
== END 2024-12-08 23:59 | disposition home or self-care (01) ==
LOC: RAD 09:29
PROVIDERS: PCP Internal Medicine; Visit Provider Internal Medicine
DX: R91.8 Other nonspecific abnormal finding of lung field (principal); J18.9 Pneumonia, unspecified organism; J44.9 Chronic obstructive pulmonary disease, unspecified; I10 Essential (primary) hypertension; E78.5 Hyperlipidemia, unspecified
CPT/HCPCS: 36415; 71046; 80053; 80061; 85025

== ENCOUNTER → 2025-05-25 09:21 | Outpatient (CLI) | payer MEDICARE, OTHER, SELFPAY ==
--- NOTE | 2025-05-25 09:24 | XR_ITS ---
FINAL REPORT CLINICAL HISTORY: COPD, left lung mass COMPARISON: 12/08/2024 FINDINGS: There has been significant interval enlargement of the left midlung mass since the prior exam of 12/08/2024. There is no evidence of effusion or other pleural disease. The mediastinum has a normal appearance. The cardiac silhouette is unremarkable. IMPRESSION: Significant enlargement of the left midlung past since the prior exam of 12/08/2024, worrisome for underlying malignancy. Reviewed, Interpreted and Dictated by Gurwinder Noriega MD Transcribed by Anjana Buenrostro Authenticated and [facility]
--- OUTSIDE RECORDS SUMMARY | 2025-05-25 10:40 | XMS_ITS | Clinical Summary ---
Author Organization [facility] Address [address] [place] [address] Care Team Providers Care Truck Sales Representative Name Role Phone Shun Baker MD Primary Care Provider [phone] Allergies Active Allergy Reactions Criticality Noted Date Comments Naproxen Sodium Anaphylaxis High 07/03/2020 Ciprofloxacin Anaphylaxis High 07/03/2020 Medications sertraline (ZOLOFT) 50 MG tablet Take 1 tablet by mouth Daily. 05/19/2020 Active amLODIPine (NORVASC) 5 MG tablet Take 1 tablet by mouth Daily. 04/21/2020 Active triamterene-hyd rochlorothiazid e (MAXZIDE-25) 37.5-25 MG per tablet Take 1 tablet by mouth Daily. Active aspirin 81 MG EC tablet Take 1 tablet by mouth Daily. Active Glucosamine HCl (GLUCOSAMINE PO) Take 1 capsule by mouth Daily. Active Active Problems Problem Noted Date Diagnosed Date Prediabetes 01/03/2022 Pseudophakia 03/26/2021 Tobacco abuse 07/04/2020 Stage 3a chronic kidney disease 07/04/2020 AAA s/p EVAR 202007/04/2020 Major depressive disorder 06/06/2020 Benign essential hypertension 09/23/2016 Hypertension Resolved Problems Problem Noted Date Diagnosed Date Resolved Date Abdominal aortic aneurysm (A AA) without rupture 06/27/2020 01/08/2021 Overview (06/27/2020): Added automatically from request for surgery [id number] Immunizations Immunization Administration Dates Next Due Fluad Quad 65+ 06/06/2020(Deferred: Patient ruiz black) Pneumococcal Polysaccharide (PPSV23) 06/06/2020( Deferred: Patient decision) TD Preservative Free (Tenivac) 04/28/2018 Family History Medical History Relation Name Comments Stroke Father Kidney failure Mother Relation Name Status Comments Father Mother Social History Tobacco Use Types Packs/Day Years Used Date Smoking Tobacco: Every Day Cigarettes 1.1 57 Started: 1968 Smokeless Tobacco: Never Tobacco Cessation:Ready to Q uit: Not Asked; Counseling Given: Not Answered Comments:1.5ppd just recently with stress and not being in [place] and less active - 01/13/23 pt states that he is still smoking from 1ppd to 1 1/2 ppd. 01/2024 pt currently smoking up to 2 PPD Alcohol Use Standard Drinks/Week Comments Not Currently 0 (1 standard drink = 0.6 oz pur e alcohol) Abuse Screen Answer Date Recorded Unsafe at Home or Work/School Not on file Feels Threatened by Someone? Not on file 05/2023 Does Anyone Keep You from Co ntacting Others or Doint Things Outside the Home? Not on file 03/20/2023 Physical Sign of Abuse Present Not on file 1 Housing Stability Answer Date Recorded Current Living Arrangements Not on file 03/09 Potentially Unsafe Housing Conditions Not on renee e 03/20/2023 Family and Community Support Answer Forrest e Recorded Help with Day-to-Day Activities Not on file 03/20/2023 Lonely or Isolated Not on file 03/20/2023 Employment Answer Date Recorded Do you want help finding or keeping work or a blade b? Not on file 03/20/2023 Disabilities Answer Date Recorded Concentrating, Remembering, or Making Decisions Difficulty Not on file 03/20/2023 Doing Errands Independently Difficulty Not on fi le 03/20/2023 Education Answer Date Recorded Help with school or training? 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 Not on file Not on f ile Last Filed Vital Signs Vital Sign Reading Time Taken Comments Blood Pressure 130/84 01/12/2024 10:35 AM EDT Pulse 93 01/12/2024 10:34 AM EDT Temperature 36.2 C (97.1 F) 01/12/2024 10:34 AM EDT Respiratory Rate 20 07/05/2020 10:1 1 AM EST Oxygen Saturation 96% 01/12/2024 10: 34 AM EDT Inhaled Oxygen Concentration - - Weight 93.2 kg (205 lb 6.4 oz) 01/12/20 24 10:34 AM EDT Height 167.6 cm (5' 5.98 ) 01/12/2024 1 0:34 AM EDT pt reported Body Mass Index 33.17 01/12/2024 10:34 AM EDT Plan of Treatment Health Maintenance Due Date Last Done Comments COVID-19 Vaccine (#1) 09/14/1955 Pneumococcal Vaccine 50+ (1 of 2 - PCV) 1969 COLOGUARD 09/14/1995 COLON CANCER SCREENING 5 YEA R SIGMOIDOSCOPY 09/14/1995 COLONOSCOPY 09/14/1995 COLORECTAL CANCER SCREENING 09/14/1995 CT COLONOGRAPHY 09/14/1995 FECAL OCCULT BLOOD TEST 09/14/1995 FIT Testing (1 year) 09/14/1995 ZOSTER VACCINE (1 of 2) 2000 TDAP/TD VACCINES (1 - Tdap) 04/29/2018 04/28/2018 ANNUAL WELLNESS VISIT 06/27/2020 HEPATITIS C SCREENING 06/27/2020 INFLUENZA VACCINE 01/07/2025 HEMOGLOBIN A1C Discontinued 07/03/2020 AAA SCREEN ONCE Completed 01/12/2024, 07/0 02/2024, 12/16/2023, Additional history exists Medical Devices Implanted Type Area Military Technology Specialist Device Identifier Shelf Expiration Date Model / Serial / Lot Grft Excldr C3 Trnk I/Lat 16f 26x14.5mm 14cm - [id number] - [id number] Implanted:Qty: 1 on 07/04/2020 by Marcelo Valerio MD at [facility] Implant Left: Aorta [employer] 09/22/2022 [id number] / [id number] / Grft Excldr Contralat 12f 18mm 13.5cm - [id number] Implanted:Qty: 1 on 07/04/2020 by Marcelo Valerio MD at [facility] Implant Left: Aorta [employer] 01/17/2023 [id number] / / [id number] Description:Right common micaela ac Grft Excldr Contralat 12f 18mm 9.5cm - [id number] Implanted:Qty: 1 on 07/04/2020 by Marcelo Valerio MD at [facility] Implant Left: Aorta [employer] 02/10/2023 [id number] / / [id number] Description:Left common storm c Grft Excldr Contralat 12f 20mm 11.5cm - [id number] Implanted:Qty: 1 on 07/04/2020 by Marcelo Valerio MD at [facility] Implant Left: Aorta [employer] 03/14/2023 [id number] / / [id number] Procedures Procedure Name Priority Date/Time Associated Diagnosis Comments CT ABDOMEN PELVIS WO CONTRAST Routine 12/16/2023 1:13 PM EDT Infrarenal abdominal aortic aneurysm (AAA) without rupture HEMOGLOBIN A1C Routine 07/03/2020 9:10 AM EST AAA (abdominal aortic aneurysm) without rupture from Last 3 Months or Most Recently Relevant to Health Maintenance Results * CT Abdomen Pelvis Without Contrast (12/16/2023 1:13 PM EDT) Anatomical Region Laterality Modality Abdomen, Pelvis N/A Computed Tomogra phy 12/18/2023 2:06 PM EDT Impressions 12/18/2023 2:12 PM EDT Impression: Stable size and appearance of the excluded infrarenal abdominal aortic aneurysm, with grossly unchanged appearance/position of the aortobiiliac stent graft. The vasculature and stent graft is suboptimally evaluated in the absence of IV contrast. Electronically Signed: Morgan Hyman MD 12/18/2023 2:12 PM EDT Workstation ID: [id number] Narrative 12/18/2023 2:[address] ABDOMEN PELVIS WO CONTRAST Date of Exam: 12/16/2023 12:51 PM EDT Indication: AAA. Comparison: CTA abdomen/pelvis 12/20/2022 Technique: Axial CT images were obtained of the abdomen and pelvis without the administration of contrast. Reconstructed coronal and sagittal images were also obtained. Automated exposure control and iterative construction methods were used. Findings: Evaluation of the vasculature is limited in the absence of IV contrast. Redemonstration of infrarenal abdominal aortic aneurysm with aortobiiliac stent graft; this is suboptimally evaluated in the absence of IV contrast. The appearance and position of the stent graft is unchanged from prior exam, and the size of the infrarenal aneurysm appears grossly unchanged measuring approximately 4.7 cm in maximal transverse diameter. Lung bases are clear with calcified granuloma in the right lower lobe. Unremarkable appearance of the liver. The gallbladder is surgically absent. Normal appearance of the bile ducts. Unremarkable appearance of the spleen, pancreas, adrenal glands, kidneys, ureters, bladder, prostate, seminal vesicles, and GI tract. Unremarkable appearance of the body wall soft tissues. No lymphadenopathy. No acute or suspicious bony findings. Procedure Note Morgan Hyman MD - 12/18/2023 CT ABDOMEN PELVIS WO CONTRAST Date of Exam: 12/16/2023 12:51 PM EDT Indication: AAA. Comparison: CTA abdomen/pelvis 12/20/2022 Technique: Axial CT images were obtained of the abdomen and pelvis withoutthe administration of contrast. Reconstructed coronal and sagittal imageswere also obtained. Automated exposure control and iterative constructionmethods were used. Findings: Evaluation of the vasculature is limited in the absence of IV contrast.Redemonstration of infrarenal abdominal aortic aneurysm with aortobiiliacstent graft; this is suboptimally evaluated in the absence of IV contrast.The appearance and position of the stent graft is unchanged from prior exam, and the size of theinfrarenal aneurysm appears grossly unchanged measuring approximately 4.7cm in maximal transverse diameter. Lung bases are clear with calcified granuloma in the right lower lobe.Unremarkable appearance of the liver. The gallbladder is surgicallyabsent. Normal appearance of the bile ducts. Unremarkable appearance ofthe spleen, pancreas, adrenal glands, kidneys, ureters, bladder, prostate, seminal vesicles, and GI tract.Unremarkable appearance of the body wall soft tissues. No lymphadenopathy.No acute or suspicious bony findings. IMPRESSION: Impression: Stable size and appearance of the excluded infrarenal abdominal aorticaneurysm, with grossly unchanged appearance/position of the aortobiiliacstent graft. The vasculature and stent graft is suboptimally evaluated inthe absence of IV contrast. Electronically Signed: Morgan Hyman MD 12/18/2023 2:12 PM EDT Workstation ID: [id number] Sheth Demond CHAPTER RELATIONS ADMINISTRATOR IMG CT ORDERABLES Final Result * (ABNORMAL) Hemoglobin A1c (07/03/2020 9:10 AM EST) Hemoglobin A1C 6.00(H) 4.80 - 5.60 % 07/03/2020 9:51 AM EST [facility] Blood Venipuncture / Unknown 07/03/2020 9:10 AM EST 07/03/2020 9:29 AM EST Narrative [facility] - 07/03/2020 9:51 AM EST Hemoglobin A1C Ranges: Increased Risk for Diabetes 5.7% to 6.4% Diabetes >= 6.5% Diabetic Goal < 7.0% Pauline Suresh APRN LAB BLOOD ORDERABLES Final Result [facility]
[address] [place] [address], from Last 3 Months or Most Recently Relevant to Health Maintenance Insurance [facility] SUP Advance Directives * CPR (Attempt to Resuscitate) (Latest Code Status on File) Date Activated Date Inactivated Comments 07/04/2020 12:52 PM 07/05/2020 7:40 PM Question Answer Comments Code Status (Patient has no pulse and is not breathing): CPR (Attempt to Resuscitate) Medical Interventions (Patie nt has pulse or is breathing): Full Healthcare Agents on File Name Relationship Healthcare Agent Relationship Communication Cony Jacki Spouse Power of Attorn for Healthcare [email or web address] Care Teams Truck Sales Representative Relationship Specialty Start Date End Date Shun Bakre MD [address] [facility] [address] [place] [id number] PCP - General Internal Medicine 12/16/23
[2025-05-25 15:25] LABS: Hematocrit 46.3 % (42.0-52.0); Hemoglobin 14.6 g/dL (14.1-18.0); Immature Granulocytes % 0.7 %; Mean Corpuscular HGB Conc 31.5 g/dL (31.8-35.4); Mean Corpuscular Hemoglobin 28.9 pg (27.0-31.2); Mean Corpuscular Volume 91.7 fl (80-94); Nucleated Red Blood Cells % 0 %; Platelet Count 342 K/mm3 (142-424); Red Blood Count 5.05 M/mm3 (4.60-6.20); Red Cell Distribution Width-SD 43.4 fL; White Blood Count 10.3 K/mm3 (4.8-10.8)
[2025-05-25 16:01] LABS: Alanine Aminotransferase 29 U/L (12-78); Albumin Level 4.4 g/dl (3.5-5.0); Albumin/Globulin Ratio 1.5 (1.1-1.8); Alkaline Phosphatase 88 U/L (38-126); Anion Gap 14.2 mEq/L (5-15); Aspartate Amino Transferase 29 U/L (17-59); Bilirubin,Total 0.6 mg/dl (0.2-1.3); Blood Urea Nitrogen 21 mg/dl (9-20); Calcium 9.3 mg/dl (8.4-10.2); Carbon Dioxide 31 mmol/L (22.0-30.0); Chloride 99 mmol/L (98-107); Cholesterol 171 mg/dl (140-200); Creatinine,Serum 1.20 mg/dl (0.66-1.25); Estimated Glomerular Filt Rate 59 ml/min (>60); GFR (African American) 72 ML/MIN (>60); Globulin 3.0 g/dL (1.3-3.2); Glucose 96 mg/dl (74-100); HDL Cholesterol 33 mg/dl (40-60); Potassium 5.2 mmoL/L (3.5-5.1); Sodium 139 mmol/L (136-145); Total Protein,Serum 7.4 g/dl (6.3-8.2); Triglycerides 154 mg/dl (30-150)
== END ==
LOC: RAD 09:22
PROVIDERS: PCP Internal Medicine; Visit Provider Internal Medicine
DX: J44.9 Chronic obstructive pulmonary disease, unspecified (principal); R91.8 Other nonspecific abnormal finding of lung field; E78.5 Hyperlipidemia, unspecified; I10 Essential (primary) hypertension
CPT/HCPCS: 71046